=== PATIENT | female | born 1990 | race African-American/Black ===

== ENCOUNTER 2016-12-06 10:47 | Outpatient (CLI) | payer BC, MEDICAID ==
[2016-12-06 11:34] LABS: APPEARANCE,URINE CLEAR; BILIRUBIN,URINE NEGATIVE (NEGATIVE); GLUCOSE, URINE >=500 mg/dL (NEGATIVE); KETONES,URINE 80 mg/dL (NEGATIVE); LEUKOCYTE ESTERASE,URINE NEGATIVE (NEGATIVE); NITRITE,URINE NEGATIVE (NEGATIVE); PROTEIN,URINE 30 mg/dL (NEGATIVE); URINE SPECIFIC GRAVITY 1.026; UROBILINOGEN,URINE NEGATIVE mg/dL (<2.0)
[2016-12-06 12:04] LABS: URINE BARBITURATES SCREEN NEGATIVE; URINE METHADONE SCREEN NEGATIVE; URINE OPIATES LOW NEGATIVE; URINE PHENCYCLIDINE SCREEN NEGATIVE
[2016-12-06] MEDS ORDERED: FLUCONAZOLE 100 MG TABLET ONE (12:15)
[2016-12-06] MEDS ORDERED: FLUCONAZOLE 100 MG TABLET PO ONE (12:15)
[2016-12-06 12:57] LABS: ALANINE AMINOTRANSFERASE 34 U/L (9-52); ALBUMIN 3.3 g/dL (3.5-5.0); ALKALINE PHOSPHATASE 86 U/L (38-126); ANION GAP 15 (5-19); ASPARTATE AMINO TRANSFERASE 36 U/L (14-36); BILIRUBIN,DIRECT 0.4 mg/dL (0.0-0.4); BILIRUBIN,TOTAL 0.9 mg/dL (0.2-1.3); BLOOD UREA NITROGEN 5 mg/dL (7-20); CALCIUM 8.6 mg/dL (8.4-10.2); CARBON DIOXIDE 17 mmol/L (22-30); CHLORIDE 106 mmol/L (98-107); CREATININE RESULT 0.53 mg/dL (0.52-1.25); GLUCOSE 225 mg/dL (75-110); POTASSIUM 4.2 mmol/L (3.6-5.0); SODIUM 138.1 mmol/L (137-145); TOTAL PROTEIN 6.4 g/dL (6.3-8.2)
[2016-12-06 13:20] LABS: ABSOLUTE LYMPHOCYTES (AUTO) 0.7 10^3/uL (0.5-4.7); ABSOLUTE MONOCYTES (AUTO) 0.7 10^3/uL (0.1-1.4); ABSOLUTE NEUT (AUTO) 5.4 10^3/uL (1.7-8.2); BASOPHILS % (AUTO) 0.4 % (0-2); EOSINOPHILS % (AUTO) 0.7 % (0-6); HEMATOCRIT 37.3 % (36.0-47.0); HGB HCT DIFFERENCE -1.3; LYMPHOCYTES % (AUTO) 10.5 % (13-45); MEAN CORPUSCULAR HEMOGLOBIN 27.4 pg (27.0-33.4); MEAN CORPUSCULAR HGB CONC 32.1 g/dL (32.0-36.0); MEAN CORPUSCULAR VOLUME 86 fl (80-97); MONOCYTES % (AUTO) 10.5 % (3-13); RED BLOOD COUNT 4.36 10^6/uL (3.72-5.28); RED CELL DISTRIBUTION WIDTH 14.3 % (11.5-14.0); SEGMENTED NEUTROPHILS % (AUTO) 77.9 % (42-78); WHITE BLOOD COUNT 6.9 10^3/uL (4.0-10.5)
[2016-12-06] MEDS ORDERED: INSULIN LISPRO 100 UNIT/ML 3 ML VIAL SUBCUT ONE (15:07)
[2016-12-06] MEDS ORDERED: INSULIN LISPRO 100 UNIT/ML 3 ML VIAL ONE (15:12)
[2016-12-06 15:13] LABS: CHLAM PCR NOT DETECTED (NOT DETECT)
--- NOTE | 2016-12-06 19:14 | L&D Discharge Summary ---
OB Discharge Summary Datetime Report Generated by CPN: 12/06/2016 19:14 DISCHARGE DIAGNOSIS Diagnoses/Symptoms Other: Dehydration, not in labor Gestation: 30.2 Number of Babies in Womb: 1 Parity: 2 DIET/ACTIVITY/RESTRICTIONS Diet: Regular Activity: Normal Activity TEACHING/INSTRUCTIONS/REFERRALS Instructions Given To: Patient Instructions Understood: Patient Verbalized Understanding Referrals: None Educational Materials- Other: Dehydration, kick counts DISCHARGE INFORMATION Discharged AMA: No Discharge Date/Time: 12/06/2016 16:00 Discharged To: Home Discharge Provider Name: Dr Portiaen Accompanied By: self Discharge Method: Ambulatory Condition: Stable FOLLOW UP INFORMATION Follow Up With: [facility] Follow Up On: As Scheduled
--- NOTE | 2016-12-06 19:15 | L&D Discharge Summary ---
OB Discharge Summary Datetime Report Generated by CPN: 12/06/2016 19:15 DISCHARGE DIAGNOSIS Diagnoses/Symptoms Other: Dehydration, not in labor Gestation: 30.2 Number of Babies in Womb: 1 Parity: 2 DIET/ACTIVITY/RESTRICTIONS Diet: Regular Activity: Normal Activity TEACHING/INSTRUCTIONS/REFERRALS Instructions Given To: Patient Instructions Understood: Patient Verbalized Understanding Referrals: None Educational Materials- Other: Dehydration, kick counts DISCHARGE INFORMATION Discharged AMA: No Discharge Date/Time: 12/06/2016 16:00 Discharged To: Home Discharge Provider Name: Dr Portiaen Accompanied By: self Discharge Method: Ambulatory Condition: Stable FOLLOW UP INFORMATION Follow Up With: [facility] Follow Up On: As Scheduled
--- NOTE | 2016-12-07 22:46 | Antepartum Discharge Summary ---
Antepartum DC Datetime Report Generated by CPN: 12/07/2016 22:45 DIET/ACTIVITY/RESTRICTIONS Diet: Regular (12/06/2016 16:10:Noemi Odom RN) Activity: Normal Activity (12/06/2016 16:10:Noemi Odom RN) TEACHING/INSTRUCTIONS/REFERRALS Instructions Given To: Patient (12/06/2016 16:10:Noemi Odom RN) Instructions Understood: Patient Verbalized Understanding (12/06/2016 16:10:Noemi Odom, RN) Referrals: None (12/06/2016 16:10:Noemi Odom RN) Educational Materials- Other: Dehydration, kick counts (12/06/2016 16:10:Noemi Odom RN) DISCHARGE INFORMATION Discharged AMA: No (12/06/2016 16:10:Noemi Odom RN) Discharge Date/Time: 12/06/2016 16:00 (12/06/2016 16:10:Noemi Odom RN) Discharged To: Home (12/06/2016 16:10:Noemi Odom RN) Discharge Provider Name: Dr Bennett (12/06/2016 16:10:Noemi Odom RN) Accompanied By: self (12/06/2016 16:10:Noemi Odom RN) Discharge Method: Ambulatory (12/06/2016 16:10:Noemi Odom RN) Condition: Stable (12/06/2016 16:10:Noemi Odom RN) FOLLOW UP INFORMATION Follow Up With: [facility] (12/06/2016 16:10:Noemi Odom RN) Follow Up On: As Scheduled (12/06/2016 16:10:Noemi Odom RN)
--- NOTE | 2016-12-07 22:47 | L&D Discharge Summary ---
OB Discharge Summary Datetime Report Generated by CPN: 12/07/2016 22:45 DISCHARGE DIAGNOSIS Diagnoses/Symptoms Other: Dehydration, not in labor Gestation: 30.3 Number of Babies in Womb: 1 Parity: 2 DIET/ACTIVITY/RESTRICTIONS Diet: Regular Activity: Normal Activity TEACHING/INSTRUCTIONS/REFERRALS Instructions Given To: Patient Instructions Understood: Patient Verbalized Understanding Referrals: None Educational Materials- Other: Dehydration, kick counts DISCHARGE INFORMATION Discharged AMA: No Discharge Date/Time: 12/06/2016 16:00 Discharged To: Home Discharge Provider Name: Dr Portiaen Accompanied By: self Discharge Method: Ambulatory Condition: Stable FOLLOW UP INFORMATION Follow Up With: [facility] Follow Up On: As Scheduled
--- NOTE | 2016-12-07 22:47 | L&D Current Admission ---
Current Admit Datetime Report Generated by CPN: 12/07/2016 22:45 ADMISSION INFORMATION Chief Complaint: Contractions (12/06/2016 11:27:Noemi Odom RN) Chief Complaint: Dizziness x2 days; states blood glucose has been elevated and pt was seen Lizandro in [place] and they reccommended her be admitted to the hospital for blood glucose regulation and she denied admission. (11/04/2016 12:45:Carrington Ochoa RN)
--- NOTE | 2016-12-07 22:47 | L&D General Admission ---
General Admit Datetime Report Generated by CPN: 12/07/2016 22:45 INFORMATION Patient Age: 25 (09/28/2015 16:41:QS system process) EDC: 02/11/2017 00:00 (11/04/2016 12:44:Carrington Ochoa RN) : 3 (11/04/2016 12:44:Noemi Odom RN) Para: 2 (11/04/2016 12:44:Noemi Odom RN) Term: 1 (11/04/2016 12:44:Noemi Odom RN) : 1 (11/04/2016 12:44:Noemi Odom RN) Spontaneous Abortions: 0 (11/04/2016 12:44:Noemi Odom RN) Induced Abortions: 0 (11/04/2016 12:44:Noemi Odom RN) Livin (11/04/2016 12:44:Noemi Odom RN) Cesareans: 2 (11/04/2016 12:44:Noemi Odom RN) VBACs: 0 (11/04/2016 12:44:Noemi Odom RN) Ectopic: 0 (11/04/2016 12:44:Noemi Odom RN) Multiple Births: 0 (11/04/2016 12:44:Noemi Odom RN) Baby, Number in Womb: 1 (11/04/2016 12:44:Noemi Odom RN) CARE Primary Quality Controller: [facility] (11/04/2016 12:44:Noemi Odom RN) Month of 1st Visit: June (11/04/2016 12:44:Noemi Odom RN) Prepregnancy Weight (lb): 143 (11/04/2016 12:44:Noemi Odom RN) Prepregnancy Weight (kg): 65.0 (11/04/2016 12:44:QS system process) Height (in): 66 (12/06/2016 11:16:QS system process) Height (in): 67 (11/04/2016 16:29:QS system process) Height (in): 67 (11/04/2016 14:17:QS system process) Height (in): 67 (11/04/2016 13:56:QS system process) Height (in): 67 (11/04/2016 12:44:QS system process) Height (in): 66 (08/03/2016 13:57:QS system process) Height (in): 66 (07/26/2016 12:10:QS system process) Height (in): 66 (09/29/2015 08:36:QS system process) Height (in): 66 (09/28/2015 18:48:QS system process) Height (in): 66 (09/28/2015 16:44:QS system process) Height (in): 66 (09/28/2015 16:41:QS system process) ALLERGIES Medication Allergy: No (11/04/2016 12:44:Noemi Odom RN) Medication Allergies: No Known Allergies (12/06/2016) (12/06/2016 11:07:QS system process) Medication Allergies: No Known Allergies (11/04/2016) (11/04/2016 12:42:QS system process) Medication Allergies: No Known Allergies (07/26/2016) (07/26/2016 12:10:QS system process) Medication Allergies: No Known Allergies (09/28/2015) (09/28/2015 16:41:QS system process) Latex Allergy: No Latex Allergies (11/04/2016 12:44:Noemi Odom RN) COMMUNICATION Primary Language: Greenlandic (11/04/2016 12:44:Noemi Odom RN) Medical Tx Preferred Language: Greenlandic (11/04/2016 12:44:Noemi Odom RN) DEMOGRAPHICS Address: [address] [place] [id number] (09/28/2015 18:48:QS system process) Address: [address] [place] [id number] (09/28/2015 16:41:QS system process) Zipcode: [phone] (09/28/2015 16:41:QS system process) Home (09/28/2015 16:41:QS system process) Work (09/28/2015 16:41:QS system process) SSN: [id number] (09/28/2015 16:41:QS system process) Next of Kin Name: DREA MARTIN (07/26/2016 12:10:QS system process) Next of Kin Name: MADELINE MARTIN (09/28/2015 16:41:QS system process) Next of Kin (09/28/2015 16:41:QS system process) Next of Kin Relationship: MO (09/28/2015 16:41:QS system process) Date of : 1990 (09/28/2015 16:41:QS system process) Marital Status: Single (09/28/2015 16:41:QS system process) Sex: Female (09/28/2015 16:41:QS system process) Race: (09/28/2015 16:41:QS system process) Ethnicity: Non- or (09/28/2015 16:41:QS system process) Samaritan: None (09/28/2015 16:41:QS system process) DRUG AND ALCOHOL USE Alcohol: No (11/04/2016 12:44:Noemi Odom RN) Cigarettes: Never Smoker. [id number] (11/04/2016 12:44:Noemi Odom RN) Marijuana: No (11/04/2016 12:44:Noemi Odom RN) Cocaine: No (11/04/2016 12:44:Noemi Odom RN) Other Illicit Drugs: No (11/04/2016 12:44:Noemi Odom RN) VACCINE HISTORY Influenza Vaccine: Yes (11/04/2016 12:44:Noemi Odom RN) Pneumococcal Vaccine: No (11/04/2016 12:44:Noemi Odom RN) Tetanus Vaccine: No (11/04/2016 12:44:Noemi Odom RN) Tdap Vaccine: No (11/04/2016 12:44:Noemi Odom RN) Hepatitis B Vaccine: No (11/04/2016 12:44:Noemi Odom RN) Benefit of Breast Feed Discussed: Yes (11/04/2016 12:44:Noemi Odom RN) Circumcision: Yes (11/04/2016 12:44:Noemi Odom RN) Classes Attended: No (11/04/2016 12:44:Noemi Oodm RN) Tubal Ligation: Yes (11/04/2016 12:44:Noemi Odom RN) Tubal Authorization Signed: Yes (11/04/2016 12:44:Noemi Odom RN) Consent: N/A (11/04/2016 12:44:Noemi Odom RN) Consent Signed: No (11/04/2016 12:44:Noemi Odom RN) Pain Management Plans: Spinal (11/04/2016 12:44:Noemi Odmo RN) Support Person: Drea (11/04/2016 12:44:Noemi Odom RN) Support Person Relationship: Mother (11/04/2016 12:44:Noemi Odom RN) Cultural/Spritual Practice: No (11/04/2016 12:44:Noemi Odom RN) Spir/Cult Dietary Needs: No (11/04/2016 12:44:Noemi Odom RN) LIVING SITUATION/DISCHARGE PLAN Living Arrangements: Apartment (11/04/2016 12:44:Noemi Odom RN) Adequate Access to:: Electric; Heat; Refrigeration; Plumbing/Running water; Phone; Transportation (11/04/2016 12:44:Noemi Odom RN) WIC Program: Yes (11/04/2016 12:44:Noemi Odom RN) Discharge Tentering Machine Off Bearer Person: family (11/04/2016 12:44:Noemi Odom RN) Person to Help after Discharge: family (11/04/2016 12:44:Noemi Odom RN) Currently Using Commun Resources: No (11/04/2016 12:44:Noemi Odom RN) Outside Agency/Way Inspector: No (11/04/2016 12:44:Noemi Odom RN) Car Seat for Discharge: No (11/04/2016 12:44:Noemi Odom RN) Need Help to Obtain Car Seat: will get one soon (11/04/2016 12:44:Noemi Odom RN) Adoption Requested: No (11/04/2016 12:44:Noemi Odom RN) Pt Contact w/infant Post : N/A (11/04/2016 12:44:Noemi Odom RN) LABS Blood Type: O Positive (11/04/2016 12:44:Noemi Odom RN) Antibody Screen: postitive (11/04/2016 12:44:Noemi Odom RN) Hemoglobin: 12.0 (12/06/2016 12:52:QS system process) Hemoglobin: 10.4 L (09/29/2015 21:58:QS system process) Hemoglobin: 10.7 L (09/29/2015 19:10:QS system process) Hemoglobin: 10.9 L (09/29/2015 14:03:QS system process) Hemoglobin: 12.1 (09/29/2015 10:19:QS system process) Hemoglobin: 10.9 L (09/29/2015 06:27:QS system process) Hemoglobin: 11.7 L (09/29/2015 02:25:QS system process) Hematocrit: 37.3 (12/06/2016 12:52:QS system process) Hematocrit: 32.9 L (09/29/2015 21:58:QS system process) Hematocrit: 34.3 L (09/29/2015 19:10:QS system process) Hematocrit: 35.0 L (09/29/2015 14:03:QS system process) Hematocrit: 39.1 (09/29/2015 10:19:QS system process) Hematocrit: 34.0 L (09/29/2015 06:27:QS system process) Hematocrit: 37.6 (09/29/2015 02:25:QS system process) MCV: 86 (12/06/2016 12:52:QS system process) MCV: 87 (09/29/2015 21:58:QS system process) MCV: 87 (09/29/2015 19:10:QS system process) MCV: 88 (09/29/2015 14:03:QS system process) MCV: 89 (09/29/2015 10:19:QS system process) MCV: 87 (09/29/2015 06:27:QS system process) MCV: 88 (09/29/2015 02:25:QS system process) RPR/VDRL: Nonreactive (11/04/2016 12:44:Noemi Odom RN) HIV Exposure Test: Negative (11/04/2016 12:44:Noemi Odom RN) Hepatitis B: Negative (11/04/2016 12:44:Noemi Odom RN) OB/PREVIOUS HISTORY Previous Procedures: Ultrasound; NST (11/04/2016 12:44:Noemi Odom RN) Current Procedures: Ultrasound (11/04/2016 12:44:Noemi Odom RN) History of Previous : Yes (11/04/2016 12:44:Noemi Odom RN) History of Gestational Diabetes: No (11/04/2016 12:44:Noemi Odom RN) History of PIH: No (11/04/2016 12:44:Noemi Odom RN) History of Incompetent Cervix: No (11/04/2016 12:44:Noemi Odom RN) History of Placenta Previa/Abrup: No (11/04/2016 12:44:Noemi Odom RN) History of Macrosomia: No (11/04/2016 12:44:Noemi Odom RN) History of IUGR: No (11/04/2016 12:44:Noemi Odom RN) History of Hemorrhage: No (11/04/2016 12:44:Noemi Odom RN) History of Loss/Stillborn: No (11/04/2016 12:44:Noemi Odom RN) History of : No (11/04/2016 12:44:Noemi Odom RN) History of D (Rh) Sensitization: No (11/04/2016 12:44:Noemi Odom RN) History Recurrent Loss/Stillborn: No (11/04/2016 12:44:Noemi Odom RN) History Depression/PP Depression: No (11/04/2016 12:44:Noemi Odom RN) History of Uterine Anomaly/ROGELIO: No (11/04/2016 12:44:Noemi Odom RN) History of Infertility: No (11/04/2016 12:44:Noemi Odom RN) History of ART Treatment: No (11/04/2016 12:44:Noemi Odom RN) History of ROGELIO: No (11/04/2016 12:44:Noemi Odom RN) Comments Obstetrical History: G1: primary 2010, 34 weeks G2: repeat c/s 2012 G3: current (11/04/2016 12:44:Noemi Odom RN) MEDICAL HISTORY Med Hx Diabetes: Yes (11/04/2016 12:44:Noemi Odom RN) Diabetes Type: Type I - IDDM (11/04/2016 12:44:Noemi Odom RN) Med Hx Hypertension: No (11/04/2016 12:44:Noemi Odom RN) Med Hx Heart Disease: No (11/04/2016 12:44:Noemi Odom RN) Med Hx Autoimmune Disorder: No (11/04/2016 12:44:Noemi Odom RN) Med Hx Kidney Disease/UTI: No (11/04/2016 12:44:Noemi Odom RN) Med Hx Neurologic/Epilepsy: No (11/04/2016 12:44:Noemi Odom RN) Med Hx Psychiatric Disorders: No (11/04/2016 12:44:Noemi Odom RN) Med Hx Hepatitis/Liver Disease: No (11/04/2016 12:44:Noemi Odom RN) Med Hx Varicosities/Phlebitis: No (11/04/2016 12:44:Noemi Odom RN) Med Hx Thyroid Dysfunction: No (11/04/2016 12:44:Noemi Odom RN) Med Hx Trauma/Violence: No (11/04/2016 12:44:Noemi Odom RN) Med Hx Blood Transfusion: No (11/04/2016 12:44:Noemi Odom RN) Med Hx Pulmonary (Asthma,TB): No (11/04/2016 12:44:Noemi Odom RN) Med Hx Breast: No (11/04/2016 12:44:Noemi Odom RN) Med Hx H[employer]ACHINE [employer] Surgery: No (11/04/2016 12:44:Noemi Odom RN) Med Hx Hospitalization/Surgery: Yes (11/04/2016 12:44:Noemi Odom RN) Med Hx Anesthetic Complications: No (11/04/2016 12:44:Noemi Odom RN) Med Hx Abnormal Pap Smear: No (11/04/2016 12:44:Noemi Odom RN) Other Medical Diseases: No (11/04/2016 12:44:Noemi Odom RN) Med Hx Significant Family Hx: No (11/04/2016 12:44:Noemi Odom RN) Details of Med/Surg Hx: Type 1 Diabetes diagnosed age 1, tonsillectomy, previous c/s, anti E antibody, requesting BTL (11/04/2016 12:44:Noemi Odom RN) INFECTIOUS HISTORY Inf Hx Gonorrhea: No (11/04/2016 12:44:Noemi Odom RN) Inf Hx Chlamydia: No (11/04/2016 12:44:Noemi Odom RN) Inf Hx Syphilis: No (11/04/2016 12:44:Noemi Odom RN) Inf Hx HIV/AIDS: No (11/04/2016 12:44:Noemi Odom RN) Inf Hx Human Papilloma Virus: No (11/04/2016 12:44:Noemi Odom RN) Inf Hx Pt/Partner Genital Herpes: Yes (11/04/2016 12:44:Noemi Odom RN) Inf Hx Tuberculosis/Exposure: No (11/04/2016 12:44:Noemi Odom RN) Inf Hx Hepatitis B,C: No (11/04/2016 12:44:Noemi Odom RN) Inf Hx Rash or Viral Illness: No (11/04/2016 12:44:Noemi Odom RN) Details of Infectious Hx: Taking Acyclovir currently (11/04/2016 12:44:Noemi Odom RN) GENETIC HISTORY Gen Hx Age >=35 at RIN: No (11/04/2016 12:44:Noemi Odom RN) Gen Hx Thalassemia: No (11/04/2016 12:44:Noemi Odom RN) Gen Hx Congenital Heart Defect: No (11/04/2016 12:44:Noemi Odom RN) Gen Hx Neural Tube Defect: No (11/04/2016 12:44:Noemi Odom RN) Gen Hx Down's Syndrome: No (11/04/2016 12:44:Noemi Odom RN) Gen Hx Ryne-Sachs: No (11/04/2016 12:44:Noemi Odom RN) Gen Hx Dana: No (11/04/2016 12:44:Noemi Odom RN) Gen Hx Familial Dysautonomia: No (11/04/2016 12:44:Noemi Odom RN) Gen Hx Sickle Cell Disease/Trait: No (11/04/2016 12:44:Noemi Odom RN) Gen Hx Hemophilia/Blood Disorder: No (11/04/2016 12:44:Noemi Odom RN) Gen Hx Muscular Dystrophy: No (11/04/2016 12:44:Noemi Odom RN) Gen Hx Cystic Fibrosis: No (11/04/2016 12:44:Noemi Odom RN) Gen Hx Huntingtons Chorea: No (11/04/2016 12:44:Noemi Odom RN) Gen Hx Mental Retardation/Autism: No (11/04/2016 12:44:Noemi Odom RN) Gen Hx Tested for Fragile X: No (11/04/2016 12:44:Noemi Odom RN) Gen Hx Other Inher/Chromosomal: No (11/04/2016 12:44:Noemi Odom RN) Gen Hx Maternal Metabolic DO: No (11/04/2016 12:44:Noemi Odom RN) Gen Hx Pt Father or FOB Defect: No (11/04/2016 12:44:Noemi Odom RN) Gen Hx Other Genetic History: No (11/04/2016 12:44:Noemi Odom RN) Gen Hx Drugs/Meds since LMP: Yes (11/04/2016 12:44:Noemi Odom RN) Gen Hx Medications: PNV, Insulin, Acyclovir (11/04/2016 12:44:Noemi Odom RN)
--- NOTE | 2016-12-08 04:46 | L&D Discharge Summary ---
OB Discharge Summary Datetime Report Generated by CPN: 12/08/2016 04:45 DISCHARGE DIAGNOSIS Diagnoses/Symptoms Other: Dehydration, not in labor Gestation: 30.3 Number of Babies in Womb: 1 Parity: 2 DIET/ACTIVITY/RESTRICTIONS Diet: Regular Activity: Normal Activity TEACHING/INSTRUCTIONS/REFERRALS Instructions Given To: Patient Instructions Understood: Patient Verbalized Understanding Referrals: None Educational Materials- Other: Dehydration, kick counts DISCHARGE INFORMATION Discharged AMA: No Discharge Date/Time: 12/06/2016 16:00 Discharged To: Home Discharge Provider Name: Dr Portiaen Accompanied By: self Discharge Method: Ambulatory Condition: Stable FOLLOW UP INFORMATION Follow Up With: [facility] Follow Up On: As Scheduled
--- NOTE | 2016-12-08 04:46 | Antepartum Discharge Summary ---
Antepartum DC Datetime Report Generated by CPN: 12/08/2016 04:45 DIET/ACTIVITY/RESTRICTIONS Diet: Regular (12/06/2016 16:10:Noemi Odom RN) Activity: Normal Activity (12/06/2016 16:10:Noemi Odom RN) TEACHING/INSTRUCTIONS/REFERRALS Instructions Given To: Patient (12/06/2016 16:10:Noemi Odom RN) Instructions Understood: Patient Verbalized Understanding (12/06/2016 16:10:Noemi Odom, RN) Referrals: None (12/06/2016 16:10:Noemi Odom RN) Educational Materials- Other: Dehydration, kick counts (12/06/2016 16:10:Noemi Odom RN) DISCHARGE INFORMATION Discharged AMA: No (12/06/2016 16:10:Noemi Odom RN) Discharge Date/Time: 12/06/2016 16:00 (12/06/2016 16:10:Noemi Odom RN) Discharged To: Home (12/06/2016 16:10:Noemi Odom RN) Discharge Provider Name: Dr Bennett (12/06/2016 16:10:Noemi Odom RN) Accompanied By: self (12/06/2016 16:10:Noemi Odom RN) Discharge Method: Ambulatory (12/06/2016 16:10:Noemi Odom RN) Condition: Stable (12/06/2016 16:10:Noemi Odom RN) FOLLOW UP INFORMATION Follow Up With: [facility] (12/06/2016 16:10:Noemi Odom RN) Follow Up On: As Scheduled (12/06/2016 16:10:Noemi Odom RN)
--- NOTE | 2016-12-08 04:46 | L&D Current Admission ---
Current Admit Datetime Report Generated by CPN: 12/08/2016 04:45 ADMISSION INFORMATION Chief Complaint: Contractions (12/06/2016 11:27:Noemi Odom RN) Chief Complaint: Dizziness x2 days; states blood glucose has been elevated and pt was seen Lizandro in [place] and they reccommended her be admitted to the hospital for blood glucose regulation and she denied admission. (11/04/2016 12:45:Carrington Ochoa RN)
--- NOTE | 2016-12-08 04:46 | L&D Admission Assessment ---
LD ADM ASMT Datetime Report Generated by CPN: 12/08/2016 04:45 PATIENT ASSESSMENT Assessment Type: Triage (12/06/2016 11:27:Noemi Odom RN) WEIGHT Weight (lb): 156 (12/06/2016 11:16:QS system process) Weight (kg): 70.9 (12/06/2016 11:16:QS system process) Total Wt Gain (lb): 13 (12/06/2016 11:16:QS system process) Wt Gain (kg): 6.0 (12/06/2016 11:16:QS system process) BMI: 24.4 (12/06/2016 11:16:QS system process) PAIN Pain Scale: 2 (12/06/2016 15:47:Noemi Odom RN) Pain Scale: 4 (12/06/2016 11:27:Noemi Odom RN) Pain Presence: Intermittent (12/06/2016 15:47:Noemi Odom RN) Pain Presence: Constant (12/06/2016 11:27:Noemi Odom RN) Pain Type: Contraction (12/06/2016 15:47:Noemi Odom RN) Pain Type: Sharp; Contraction; Stabbing (12/06/2016 11:27:Noemi Odom RN) Pain Location: Abdomen (12/06/2016 15:47:Noemi Odom RN) Pain Location: Abdomen (12/06/2016 11:27:Noemi Odom RN) Pain Comments: Pt feeling much better than before. (12/06/2016 15:47:Noemi Odom RN) CONTRACTIONS Frequency (min): irreg (12/06/2016 15:50:Noemi Odom RN) Frequency (min): 5-8 (12/06/2016 15:15:Noemi Odom RN) Frequency (min): 2-8 (12/06/2016 14:45:Noemi Odom RN) Frequency (min): 3-8 (12/06/2016 14:15:Noemi Odom RN) Frequency (min): x2 (12/06/2016 13:45:Noemi Odom RN) Frequency (min): 3-6 (12/06/2016 13:15:Noemi Odom RN) Frequency (min): 2-5 (12/06/2016 12:45:Noemi Odom RN) Frequency (min): 2-5 (12/06/2016 12:15:Noemi Odom RN) Frequency (min): 3-5 (12/06/2016 11:45:Noemi Odom RN) Frequency (min): pt states she has been coughing since Monday and has constant sharp lower abdominal pain (12/06/2016 11:27:Noemi Odom RN) Duration (sec): 40-70 (12/06/2016 15:50:Noemi Odom RN) Duration (sec): 50-90 (12/06/2016 15:15:Noemi Odom RN) Duration (sec): 40-80 (12/06/2016 14:45:Noemi Odom RN) Duration (sec): 30-90 (12/06/2016 14:15:Noemi Odom RN) Duration (sec): 50-70 (12/06/2016 13:45:Noemi Odom RN) Duration (sec): 40-80 (12/06/2016 13:15:Noemi Odom RN) Duration (sec): 40-80 (12/06/2016 12:45:Noemi Odom RN) Duration (sec): 40-80 (12/06/2016 12:15:Noemi Odom RN) Duration (sec): 50-80 (12/06/2016 11:45:Noemi Odom RN) Quality: Mild (12/06/2016 15:50:Noemi Odom RN) Quality: Mild (12/06/2016 15:15:Noemi Odom RN) Quality: Mild (12/06/2016 14:45:Noemi Odom RN) Quality: Mild/Moderate (12/06/2016 14:15:Noemi Odom RN) Quality: Mild/Moderate (12/06/2016 13:45:Noemi Odom RN) Quality: Mild/Moderate (12/06/2016 13:15:Noemi Odom RN) Quality: Mild/Moderate (12/06/2016 12:45:Noemi Odom RN) Quality: Mild/Moderate (12/06/2016 12:15:Noemi Odom RN) Quality: Mild/Moderate (12/06/2016 11:45:Noemi Odom RN) Pattern: Normal: <= 5 Contractions in 10 Minutes (12/06/2016 12:15:Noemi Odom RN) Resting Tone [place]: Relaxed (12/06/2016 15:50:Noemi Odom RN) Resting Tone [place]: Relaxed (12/06/2016 15:15:Noemi Odom RN) Resting Tone [place]: Relaxed (12/06/2016 14:45:Noemi Odom RN) Resting Tone [place]: Relaxed (12/06/2016 14:15:Noemi Odom RN) Resting Tone [place]: Relaxed (12/06/2016 13:45:Noemi Odom RN) Resting Tone [place]: Relaxed (12/06/2016 13:15:Noemi Odom RN) Resting Tone [place]: Relaxed (12/06/2016 12:45:Noemi Odom RN) Resting Tone [place]: Relaxed (12/06/2016 12:15:Noemi Odom RN) Resting Tone [place]: Relaxed (12/06/2016 11:45:Noemi Odom RN) NEURO Level of Consciousness: Fully Conscious (12/06/2016 11:27:Noemi Odom RN) DTR's/Clonus: DTRs 2+; No Clonus (12/06/2016 11:27:Noemi Odom RN) Headache: Generalized (12/06/2016 11:27:Noemi Odom RN) Dizziness: No (12/06/2016 11:27:Noemi Odom RN) Blurred Vision: No (12/06/2016 11:27:Noemi Odom RN) Extremity Numbness/Tingling : None (12/06/2016 11:27:Noemi Odom RN) Extremity Movement: Full Range of Motion (12/06/2016 11::Noemi Odom RN) CARDIOVASCULAR Heart Rhythm: Regular (12/06/2016 11:27:Noemi Odom RN) Nailbeds: [place] (12/06/2016 11:27:Noemi Odom RN) Capillary Refill: Less than 3 Seconds (12/06/2016 11:27:Noemi Odom RN) Facial Edema: None (12/06/2016 11:27:Noemi Odom RN) RESPIRATORY Respiratory Effort: Unlabored; Regular Rhythm; Equal Expansion (12/06/2016 11:27:Noemi Odom RN) Breath Sounds, Left: Clear and Equal (12/06/2016 11:27:Noemi Odom RN) Breath Sounds, Right: Clear and Equal (12/06/2016 11:27:Noemi Odom RN) Cough Productivity: None (12/06/2016 11:27:Noemi Odom RN) GASTROINTESTINAL Nausea/Vomiting: Denies (12/06/2016 11:27:Noemi Odom RN) Bowel Sounds: Normoactive; All Quadrants (12/06/2016 11:27:Noemi Odom RN) RUQ Epigastric Pain: Denies (12/06/2016 11:27:Noemi Odom RN) GENITOURINARY Bladder: Nondistended (12/06/2016 11:27:Noemi Odom RN) Frequency of Urination: No (12/06/2016 11:27:Noemi Odom RN) Urination Burning: No (12/06/2016 11:27:Noemi Odom RN) CVA Tenderness: No (12/06/2016 11:27:Noemi Odom RN) Vaginal Bleeding: None (12/06/2016 11::Noemi Odom RN) Vaginal Discharge Color: N/A (12/06/2016 11::Noemi Odom RN) INTEGUMENTARY Skin Color: Normal for Race (12/06/2016 11:27:Noemi Odom RN) Skin Temperature: Warm (12/06/2016 11::Noemi Odom RN) Skin Moisture: Dry (12/06/2016 11::Noemi Odom RN) CHRISTOPHER SKIN ASSESSMENT Christopher Scale Sensory Perception: No Impairment- Responds to verbal commands. Has no sensory deficit which would limit ability to feel or voice pain or discomfort (12/06/2016 11:27:Noemi Odom RN) Christopher Scale Moisture: Rarely Moist- Skin is usually dry. Linen only requires changing at routine intervals (12/06/2016 11::Noemi Odom RN) Christopher Scale Activity: Walks Frequently- Walks outside the room at least twice a day and inside room at least every 2 hours during the day. (12/06/2016 11:27:Noemi Odom RN) Christopher Scale Mobility: No Limitations- Makes major and frequent changes in position without assistance (12/06/2016 11:27:Noemi Odom RN) Christopher Scale Nutrition: Excellent- Eats most of every meal. Never refuses a meal. Usually eats a total of 4 or more servings of meat and dairy products. Occasionally eats between meals. Does not require supplementation (12/06/2016 11:27:Noemi Odom RN) Christopher Scale Friction and Shear: No Apparent Problem- Moves in bed and in chair independently and has sufficient muscle strength to lift up completely during move. Maintains good position in bed or chair at all times (12/06/2016 11:27:Noemi Odom RN) Christopher Scale Total: 23 (12/06/2016 11::QS system process) Christopher Scale Risk: No Risk of Pressure Ulcer Noted at this Time (12/06/2016 11:27:QS system process) SUPPORT Emotional State: Calm/Relaxed (12/06/2016 11:27:Noemi Odom RN) SAFETY Call Al Within Reach: Yes (12/06/2016 11:27:Noemi Odom RN) Side Rails Up: Yes (12/06/2016 11:27:Noemi Odom RN) Bed Wheels Locked: Yes (12/06/2016 11:27:Noemi Odom RN) Arm Bands Present: Yes (12/06/2016 11:27:Noemi Odom RN) FALL SCREEN Fall Risk History of Falling: (0) No (12/06/2016 11:27:Noemi Odom RN) Fall Risk Secondary Diagnosis: (0) No (12/06/2016 11:27:Noemi Odom RN) Fall Risk Ambulatory Aid: (0) None/Bedrest/Wheelchair/Nurse Assist (12/06/2016 11:27:Noemi Odom RN) Fall Risk IV Therapy: (0) No (12/06/2016 11:27:Noemi Odom RN) Fall Risk Gait: (0) Normal/Bedrest/Immobile (12/06/2016 11:27:Noemi Odom RN) Fall Risk Mental Status: (0) Oriented to Own Ability (12/06/2016 11:27:Noemi Odom RN) Fall Risk Score: 0 (12/06/2016 11:27:QS system process) Fall Risk Score Definition: No Risk: No action required (12/06/2016 11:27:QS system process) BABY A FHR Baseline Rate (bpm) Baby A: 145 (12/06/2016 15:50:Noemi Odom RN) FHR Baseline Rate (bpm) Baby A: 135 (12/06/2016 15:15:Noemi Odom RN) FHR Baseline Rate (bpm) Baby A: 145 (12/06/2016 14:45:Noemi Odom RN) FHR Baseline Rate (bpm) Baby A: 135 (12/06/2016 14:15:Noemi Odom RN) FHR Baseline Rate (bpm) Baby A: 135 (12/06/2016 13:45:Noemi Odom RN) FHR Baseline Rate (bpm) Baby A: 145 (12/06/2016 13:15:Noemi Odom RN) FHR Baseline Rate (bpm) Baby A: 140 (12/06/2016 12:45:Noemi Odom RN) FHR Baseline Rate (bpm) Baby A: 145 (12/06/2016 12:15:Noemi Odom RN) FHR Baseline Rate (bpm) Baby A: 145 (12/06/2016 11:45:Noemi Odom RN) Variability Baby A: Moderate 6-25 bpm (12/06/2016 15:50:Noemi Odom RN) Variability Baby A: Moderate 6-25 bpm (12/06/2016 15:15:Noemi Odom RN) Variability Baby A: Moderate 6-25 bpm (12/06/2016 14:45:Noemi Odom RN) Variability Baby A: Moderate 6-25 bpm (12/06/2016 14:15:Noemi Odom RN) Variability Baby A: Moderate 6-25 bpm (12/06/2016 13:45:Noemi Odom RN) Variability Baby A: Moderate 6-25 bpm (12/06/2016 13:15:Noemi Odom RN) Variability Baby A: Moderate 6-25 bpm (12/06/2016 12:45:Noemi Odom RN) Variability Baby A: Moderate 6-25 bpm (12/06/2016 12:15:Noemi Odom RN) Variability Baby A: Moderate 6-25 bpm (12/06/2016 11:45:Noemi Odom RN) Accelerations Baby A: 10X10 (12/06/2016 15:50:Noemi Odom RN) Accelerations Baby A: 10X10 (12/06/2016 15:15:Noemi Odom RN) Accelerations Baby A: 15X15 (12/06/2016 14:45:Noemi Odom RN) Accelerations Baby A: 15X15 (12/06/2016 14:15:Noemi Odom RN) Accelerations Baby A: 15X15 (12/06/2016 13:45:Noemi Odom RN) Accelerations Baby A: 15X15 (12/06/2016 13:15:Noemi Odom RN) Accelerations Baby A: 15X15 (12/06/2016 12:45:Noemi Odom RN) Accelerations Baby A: 15X15 (12/06/2016 12:15:Noemi Odom RN) Accelerations Baby A: None (12/06/2016 11:45:Noemi Odom RN) Decelerations Baby A: None (12/06/2016 15:50:Noemi Odom RN) Decelerations Baby A: Variable (12/06/2016 15:15:Noemi Odom RN) Decelerations Baby A: None (12/06/2016 14:45:Noemi Oodm RN) Decelerations Baby A: None (12/06/2016 14:15:Noemi Odom RN) Decelerations Baby A: None (12/06/2016 13:45:Noemi Odom RN) Decelerations Baby A: None (12/06/2016 13:15:Noemi Odom RN) Decelerations Baby A: None (12/06/2016 12:45:Noemi dOom RN) Decelerations Baby A: Late (12/06/2016 12:15:Noemi Odom RN) Decelerations Baby A: Late (12/06/2016 11:45:Noemi Odom RN)
--- NOTE | 2016-12-08 04:46 | L&D General Admission ---
General Admit Datetime Report Generated by CPN: 12/08/2016 04:45 INFORMATION Patient Age: 25 (09/28/2015 16:41:QS system process) EDC: 02/11/2017 00:00 (11/04/2016 12:44:Carrington Ochoa RN) : 3 (11/04/2016 12:44:Noemi Odom RN) Para: 2 (11/04/2016 12:44:Noemi Odom RN) Term: 1 (11/04/2016 12:44:Noemi Odom RN) : 1 (11/04/2016 12:44:Noemi Odom RN) Spontaneous Abortions: 0 (11/04/2016 12:44:Noemi Odom RN) Induced Abortions: 0 (11/04/2016 12:44:Noemi Odom RN) Livin (11/04/2016 12:44:Noemi Odom RN) Cesareans: 2 (11/04/2016 12:44:Noemi Odom RN) VBACs: 0 (11/04/2016 12:44:Noemi Odom RN) Ectopic: 0 (11/04/2016 12:44:Noemi Odom RN) Multiple Births: 0 (11/04/2016 12:44:Noemi Odom RN) Baby, Number in Womb: 1 (11/04/2016 12:44:Noemi Odom RN) CARE Primary Joiners Supervisor[facility] (11/04/2016 12:44:Noemi Odom RN) Month of 1st Visit: June (11/04/2016 12:44:Noemi Odom RN) Prepregnancy Weight (lb): 143 (11/04/2016 12:44:Noemi Odom RN) Prepregnancy Weight (kg): 65.0 (11/04/2016 12:44:QS system process) Height (in): 66 (12/06/2016 11:16:QS system process) Height (in): 67 (11/04/2016 16:29:QS system process) Height (in): 67 (11/04/2016 14:17:QS system process) Height (in): 67 (11/04/2016 13:56:QS system process) Height (in): 67 (11/04/2016 12:44:QS system process) Height (in): 66 (08/03/2016 13:57:QS system process) Height (in): 66 (07/26/2016 12:10:QS system process) Height (in): 66 (09/29/2015 08:36:QS system process) Height (in): 66 (09/28/2015 18:48:QS system process) Height (in): 66 (09/28/2015 16:44:QS system process) Height (in): 66 (09/28/2015 16:41:QS system process) ALLERGIES Medication Allergy: No (11/04/2016 12:44:Noemi Odom RN) Medication Allergies: No Known Allergies (12/06/2016) (12/06/2016 11:07:QS system process) Medication Allergies: No Known Allergies (11/04/2016) (11/04/2016 12:42:QS system process) Medication Allergies: No Known Allergies (07/26/2016) (07/26/2016 12:10:QS system process) Medication Allergies: No Known Allergies (09/28/2015) (09/28/2015 16:41:QS system process) Latex Allergy: No Latex Allergies (11/04/2016 12:44:Noemi Odom RN) COMMUNICATION Primary Language: Sinhala (11/04/2016 12:44:Noemi Odom RN) Medical Tx Preferred Language: Sinhala (11/04/2016 12:44:Noemi Odom RN) DEMOGRAPHICS Address: [address] [place] [phone] (09/28/2015 18:48:QS system process) Address: [address] [place] [phone] (09/28/2015 16:41:QS system process) Zipcode: [phone] (09/28/2015 16:41:QS system process) Home (09/28/2015 16:41:QS system process) Work (09/28/2015 16:41:QS system process) SSN: [id number] (09/28/2015 16:41:QS system process) Next of Kin Name: DREA MARTIN (07/26/2016 12:10:QS system process) Next of Kin Name: MADELINE MARTIN (09/28/2015 16:41:QS system process) Next of Kin (09/28/2015 16:41:QS system process) Next of Kin Relationship: MO (09/28/2015 16:41:QS system process) Date of : 1990 (09/28/2015 16:41:QS system process) Marital Status: Single (09/28/2015 16:41:QS system process) Sex: Female (09/28/2015 16:41:QS system process) Race: (09/28/2015 16:41:QS system process) Ethnicity: Non- or (09/28/2015 16:41:QS system process) Quaker: None (09/28/2015 16:41:QS system process) DRUG AND ALCOHOL USE Alcohol: No (11/04/2016 12:44:Noemi Odom RN) Cigarettes: Never Smoker. [id number] (11/04/2016 12:44:Noemi Odom RN) Marijuana: No (11/04/2016 12:44:Noemi Odom RN) Cocaine: No (11/04/2016 12:44:Noemi Odom RN) Other Illicit Drugs: No (11/04/2016 12:44:Noemi Odom RN) VACCINE HISTORY Influenza Vaccine: Yes (11/04/2016 12:44:Noemi Odom RN) Pneumococcal Vaccine: No (11/04/2016 12:44:Noemi Odom RN) Tetanus Vaccine: No (11/04/2016 12:44:Noemi Odom RN) Tdap Vaccine: No (11/04/2016 12:44:Noemi Odom RN) Hepatitis B Vaccine: No (11/04/2016 12:44:Noemi Odom RN) Benefit of Breast Feed Discussed: Yes (11/04/2016 12:44:Noemi Odom RN) Circumcision: Yes (11/04/2016 12:44:Noemi Odom RN) Classes Attended: No (11/04/2016 12:44:Noemi Odom RN) Tubal Ligation: Yes (11/04/2016 12:44:Noemi Odom RN) Tubal Authorization Signed: Yes (11/04/2016 12:44:Noemi Odom RN) Consent: N/A (11/04/2016 12:44:Noemi Odom RN) Consent Signed: No (11/04/2016 12:44:Noemi Odom RN) Pain Management Plans: Spinal (11/04/2016 12:44:Noemi Odom RN) Support Person: Drea (11/04/2016 12:44:Noemi Odom RN) Support Person Relationship: Mother (11/04/2016 12:44:Noemi Odom RN) Cultural/Spritual Practice: No (11/04/2016 12:44:Noemi Odom RN) Spir/Cult Dietary Needs: No (11/04/2016 12:44:Noemi Odom RN) LIVING SITUATION/DISCHARGE PLAN Living Arrangements: Apartment (11/04/2016 12:44:Noemi Odom RN) Adequate Access to:: Electric; Heat; Refrigeration; Plumbing/Running water; Phone; Transportation (11/04/2016 12:44:Noemi Odom RN) WIC Program: Yes (11/04/2016 12:44:Noemi Odom RN) Discharge Real Estate Appraiser Supervisor Person: family (11/04/2016 12:44:Noemi Odom RN) Person to Help after Discharge: family (11/04/2016 12:44:Noemi Odom RN) Currently Using Commun Resources: No (11/04/2016 12:44:Noemi Odom RN) Outside Agency/Debridging Machine Operator: No (11/04/2016 12:44:Noemi Odom RN) Car Seat for Discharge: No (11/04/2016 12:44:Noemi Odom RN) Need Help to Obtain Car Seat: will get one soon (11/04/2016 12:44:Noemi Odom RN) Adoption Requested: No (11/04/2016 12:44:Noemi Odom RN) Pt Contact w/infant Post : N/A (11/04/2016 12:44:Noemi Odom RN) LABS Blood Type: O Positive (11/04/2016 12:44:Noemi Odom RN) Antibody Screen: postitive (11/04/2016 12:44:Nomei Odom RN) Hemoglobin: 12.0 (12/06/2016 12:52:QS system process) Hemoglobin: 10.4 L (09/29/2015 21:58:QS system process) Hemoglobin: 10.7 L (09/29/2015 19:10:QS system process) Hemoglobin: 10.9 L (09/29/2015 14:03:QS system process) Hemoglobin: 12.1 (09/29/2015 10:19:QS system process) Hemoglobin: 10.9 L (09/29/2015 06:27:QS system process) Hemoglobin: 11.7 L (09/29/2015 02:25:QS system process) Hematocrit: 37.3 (12/06/2016 12:52:QS system process) Hematocrit: 32.9 L (09/29/2015 21:58:QS system process) Hematocrit: 34.3 L (09/29/2015 19:10:QS system process) Hematocrit: 35.0 L (09/29/2015 14:03:QS system process) Hematocrit: 39.1 (09/29/2015 10:19:QS system process) Hematocrit: 34.0 L (09/29/2015 06:27:QS system process) Hematocrit: 37.6 (09/29/2015 02:25:QS system process) MCV: 86 (12/06/2016 12:52:QS system process) MCV: 87 (09/29/2015 21:58:QS system process) MCV: 87 (09/29/2015 19:10:QS system process) MCV: 88 (09/29/2015 14:03:QS system process) MCV: 89 (09/29/2015 10:19:QS system process) MCV: 87 (09/29/2015 06:27:QS system process) MCV: 88 (09/29/2015 02:25:QS system process) RPR/VDRL: Nonreactive (11/04/2016 12:44:Noemi Odom RN) HIV Exposure Test: Negative (11/04/2016 12:44:Noemi Odom RN) Hepatitis B: Negative (11/04/2016 12:44:Noemi Odom RN) OB/PREVIOUS HISTORY Previous Procedures: Ultrasound; NST (11/04/2016 12:44:Noemi Odom RN) Current Procedures: Ultrasound (11/04/2016 12:44:Noemi Odom RN) History of Previous : Yes (11/04/2016 12:44:Noemi Odom RN) History of Gestational Diabetes: No (11/04/2016 12:44:Noemi Odom RN) History of PIH: No (11/04/2016 12:44:Noemi Odom RN) History of Incompetent Cervix: No (11/04/2016 12:44:Noemi Odom RN) History of Placenta Previa/Abrup: No (11/04/2016 12:44:Noemi Odom RN) History of Macrosomia: No (11/04/2016 12:44:Noemi Odom RN) History of IUGR: No (11/04/2016 12:44:Noemi Odom RN) History of Hemorrhage: No (11/04/2016 12:44:Noemi Odom RN) History of Loss/Stillborn: No (11/04/2016 12:44:Neomi Odom RN) History of : No (11/04/2016 12:44:Noemi Odom RN) History of D (Rh) Sensitization: No (11/04/2016 12:44:Noemi Odom RN) History Recurrent Loss/Stillborn: No (11/04/2016 12:44:Noemi Odom RN) History Depression/PP Depression: No (11/04/2016 12:44:Noemi Odom RN) History of Uterine Anomaly/ROGELIO: No (11/04/2016 12:44:Noemi Odom RN) History of Infertility: No (11/04/2016 12:44:Noemi Odom RN) History of ART Treatment: No (11/04/2016 12:44:Noemi Odom RN) History of ROGELIO: No (11/04/2016 12:44:Noemi Odom RN) Comments Obstetrical History: G1: primary 2010, 34 weeks G2: repeat c/s 2012 G3: current (11/04/2016 12:44:Noemi Odom RN) MEDICAL HISTORY Med Hx Diabetes: Yes (11/04/2016 12:44:Noemi Odom RN) Diabetes Type: Type I - IDDM (11/04/2016 12:44:Noemi Odom RN) Med Hx Hypertension: No (11/04/2016 12:44:Noemi Odom RN) Med Hx Heart Disease: No (11/04/2016 12:44:Noemi Odom RN) Med Hx Autoimmune Disorder: No (11/04/2016 12:44:Noemi Odom RN) Med Hx Kidney Disease/UTI: No (11/04/2016 12:44:Noemi Odom RN) Med Hx Neurologic/Epilepsy: No (11/04/2016 12:44:Noemi Odom RN) Med Hx Psychiatric Disorders: No (11/04/2016 12:44:Noemi Odom RN) Med Hx Hepatitis/Liver Disease: No (11/04/2016 12:44:Noemi Odom RN) Med Hx Varicosities/Phlebitis: No (11/04/2016 12:44:Noemi Odom RN) Med Hx Thyroid Dysfunction: No (11/04/2016 12:44:Noemi Odom RN) Med Hx Trauma/Violence: No (11/04/2016 12:44:Noemi Odom RN) Med Hx Blood Transfusion: No (11/04/2016 12:44:Noemi Odom RN) Med Hx Pulmonary (Asthma,TB): No (11/04/2016 12:44:Noemi Odom RN) Med Hx Breast: No (11/04/2016 12:44:Noemi Odom RN) Med Hx COPY OPERATOR Surgery: No (11/04/2016 12:44:Noemi Odom RN) Med Hx Hospitalization/Surgery: Yes (11/04/2016 12:44:Noemi Odom RN) Med Hx Anesthetic Complications: No (11/04/2016 12:44:Noemi Odom RN) Med Hx Abnormal Pap Smear: No (11/04/2016 12:44:Noemi Odom RN) Other Medical Diseases: No (11/04/2016 12:44:Noemi Odom RN) Med Hx Significant Family Hx: No (11/04/2016 12:44:Noemi Odom RN) Details of Med/Surg Hx: Type 1 Diabetes diagnosed age 1, tonsillectomy, previous c/s, anti E antibody, requesting BTL (11/04/2016 12:44:Noemi Odom RN) INFECTIOUS HISTORY Inf Hx Gonorrhea: No (11/04/2016 12:44:Noemi Odom RN) Inf Hx Chlamydia: No (11/04/2016 12:44:Noemi Odom RN) Inf Hx Syphilis: No (11/04/2016 12:44:Noemi Odom RN) Inf Hx HIV/AIDS: No (11/04/2016 12:44:Noemi Odom RN) Inf Hx Human Papilloma Virus: No (11/04/2016 12:44:Noemi Odom RN) Inf Hx Pt/Partner Genital Herpes: Yes (11/04/2016 12:44:Noemi Odom RN) Inf Hx Tuberculosis/Exposure: No (11/04/2016 12:44:Noemi Odom RN) Inf Hx Hepatitis B,C: No (11/04/2016 12:44:Noemi Odom RN) Inf Hx Rash or Viral Illness: No (11/04/2016 12:44:Noemi Odom RN) Details of Infectious Hx: Taking Acyclovir currently (11/04/2016 12:44:Noemi Odom RN) GENETIC HISTORY Gen Hx Age >=35 at RIN: No (11/04/2016 12:44:Noemi Odom RN) Gen Hx Thalassemia: No (11/04/2016 12:44:Noemi Odom RN) Gen Hx Congenital Heart Defect: No (11/04/2016 12:44:Noemi Odom RN) Gen Hx Neural Tube Defect: No (11/04/2016 12:44:Noemi Odom RN) Gen Hx Down's Syndrome: No (11/04/2016 12:44:Noemi Odom RN) Gen Hx Ryne-Sachs: No (11/04/2016 12:44:Noemi Odom RN) Gen Hx Dana: No (11/04/2016 12:44:Noemi Odom RN) Gen Hx Familial Dysautonomia: No (11/04/2016 12:44:Noemi Odom RN) Gen Hx Sickle Cell Disease/Trait: No (11/04/2016 12:44:Noemi Odom RN) Gen Hx Hemophilia/Blood Disorder: No (11/04/2016 12:44:Noemi Odom RN) Gen Hx Muscular Dystrophy: No (11/04/2016 12:44:Noemi Odom RN) Gen Hx Cystic Fibrosis: No (11/04/2016 12:44:Noemi Odom RN) Gen Hx Huntingtons Chorea: No (11/04/2016 12:44:Noemi Odom RN) Gen Hx Mental Retardation/Autism: No (11/04/2016 12:44:Noemi Odom RN) Gen Hx Tested for Fragile X: No (11/04/2016 12:44:Noemi Odom RN) Gen Hx Other Inher/Chromosomal: No (11/04/2016 12:44:Noemi Odom RN) Gen Hx Maternal Metabolic DO: No (11/04/2016 12:44:Noemi Odom RN) Gen Hx Pt Father or FOB Defect: No (11/04/2016 12:44:Noemi Odom RN) Gen Hx Other Genetic History: No (11/04/2016 12:44:Noemi Odom RN) Gen Hx Drugs/Meds since LMP: Yes (11/04/2016 12:44:Noemi Odom RN) Gen Hx Medications: PNV, Insulin, Acyclovir (11/04/2016 12:44:Noemi Odom RN)
--- NOTE | 2016-12-08 10:46 | L&D Discharge Summary ---
OB Discharge Summary Datetime Report Generated by CPN: 12/08/2016 10:45 DISCHARGE DIAGNOSIS Diagnoses/Symptoms Other: Dehydration, not in labor Gestation: 30.3 Number of Babies in Womb: 1 Parity: 2 DIET/ACTIVITY/RESTRICTIONS Diet: Regular Activity: Normal Activity TEACHING/INSTRUCTIONS/REFERRALS Instructions Given To: Patient Instructions Understood: Patient Verbalized Understanding Referrals: None Educational Materials- Other: Dehydration, kick counts DISCHARGE INFORMATION Discharged AMA: No Discharge Date/Time: 12/06/2016 16:00 Discharged To: Home Discharge Provider Name: Dr Portiaen Accompanied By: self Discharge Method: Ambulatory Condition: Stable FOLLOW UP INFORMATION Follow Up With: [facility] Follow Up On: As Scheduled
--- NOTE | 2016-12-08 10:46 | L&D Admission Assessment ---
LD ADM ASMT Datetime Report Generated by CPN: 12/08/2016 10:45 PATIENT ASSESSMENT Assessment Type: Triage (12/06/2016 11:27:Noemi Odom RN) WEIGHT Weight (lb): 156 (12/06/2016 11:16:QS system process) Weight (kg): 70.9 (12/06/2016 11:16:QS system process) Total Wt Gain (lb): 13 (12/06/2016 11:16:QS system process) Wt Gain (kg): 6.0 (12/06/2016 11:16:QS system process) BMI: 24.4 (12/06/2016 11:16:QS system process) PAIN Pain Scale: 2 (12/06/2016 15:47:Noemi Odom RN) Pain Scale: 4 (12/06/2016 11:27:Noemi Odom RN) Pain Presence: Intermittent (12/06/2016 15:47:Noemi Odom RN) Pain Presence: Constant (12/06/2016 11:27:Noemi Odom RN) Pain Type: Contraction (12/06/2016 15:47:Noemi Odom RN) Pain Type: Sharp; Contraction; Stabbing (12/06/2016 11:27:Noemi Odom RN) Pain Location: Abdomen (12/06/2016 15:47:Noemi Odom RN) Pain Location: Abdomen (12/06/2016 11:27:Noemi Odom RN) Pain Comments: Pt feeling much better than before. (12/06/2016 15:47:Noemi Odom RN) CONTRACTIONS Frequency (min): irreg (12/06/2016 15:50:Noemi Odom RN) Frequency (min): 5-8 (12/06/2016 15:15:Noemi Odom RN) Frequency (min): 2-8 (12/06/2016 14:45:Noemi Odom RN) Frequency (min): 3-8 (12/06/2016 14:15:Noemi Odom RN) Frequency (min): x2 (12/06/2016 13:45:Noemi Odom RN) Frequency (min): 3-6 (12/06/2016 13:15:Noemi Odom RN) Frequency (min): 2-5 (12/06/2016 12:45:Noeim Odom RN) Frequency (min): 2-5 (12/06/2016 12:15:Noemi Odom RN) Frequency (min): 3-5 (12/06/2016 11:45:Noemi Odom RN) Frequency (min): pt states she has been coughing since Monday and has constant sharp lower abdominal pain (12/06/2016 11:27:Noemi Odom RN) Duration (sec): 40-70 (12/06/2016 15:50:Noemi Odom RN) Duration (sec): 50-90 (12/06/2016 15:15:Noemi Odom RN) Duration (sec): 40-80 (12/06/2016 14:45:Noemi Odom RN) Duration (sec): 30-90 (12/06/2016 14:15:Noemi Odom RN) Duration (sec): 50-70 (12/06/2016 13:45:Noemi Odom RN) Duration (sec): 40-80 (12/06/2016 13:15:Noemi Odom RN) Duration (sec): 40-80 (12/06/2016 12:45:Noemi Odom RN) Duration (sec): 40-80 (12/06/2016 12:15:Noemi Odom RN) Duration (sec): 50-80 (12/06/2016 11:45:Noemi Odom RN) Quality: Mild (12/06/2016 15:50:Noemi Odom RN) Quality: Mild (12/06/2016 15:15:Noemi Odom RN) Quality: Mild (12/06/2016 14:45:Noemi Odom RN) Quality: Mild/Moderate (12/06/2016 14:15:Noemi Odom RN) Quality: Mild/Moderate (12/06/2016 13:45:Noemi Odom RN) Quality: Mild/Moderate (12/06/2016 13:15:Noemi Odom RN) Quality: Mild/Moderate (12/06/2016 12:45:Noemi Odom RN) Quality: Mild/Moderate (12/06/2016 12:15:Noemi Odom RN) Quality: Mild/Moderate (12/06/2016 11:45:Noemi Odom RN) Pattern: Normal: <= 5 Contractions in 10 Minutes (12/06/2016 12:15:Noemi Odom RN) Resting Tone Mcdonald: Relaxed (12/06/2016 15:50:Noemi Odom RN) Resting Tone Mcdonald: Relaxed (12/06/2016 15:15:Noemi Odom RN) Resting Tone Mcdonald: Relaxed (12/06/2016 14:45:Noemi Odom RN) Resting Tone Mcdonald: Relaxed (12/06/2016 14:15:Noemi Odom RN) Resting Tone Mcdonald: Relaxed (12/06/2016 13:45:Noemi Odom RN) Resting Tone Mcdonald: Relaxed (12/06/2016 13:15:Noemi Odom RN) Resting Tone Mcdonald: Relaxed (12/06/2016 12:45:Noemi Odom RN) Resting Tone Mcdonald: Relaxed (12/06/2016 12:15:Noemi Odom RN) Resting Tone Mcdonald: Relaxed (12/06/2016 11:45:Noemi Odom RN) NEURO Level of Consciousness: Fully Conscious (12/06/2016 11:27:Noemi Odom RN) DTR's/Clonus: DTRs 2+; No Clonus (12/06/2016 11:27:Noemi Odom RN) Headache: Generalized (12/06/2016 11:27:Noemi Odom RN) Dizziness: No (12/06/2016 11:27:Noemi Odom RN) Blurred Vision: No (12/06/2016 11:27:Noemi Odom RN) Extremity Numbness/Tingling : None (12/06/2016 11:27:Noemi Odom RN) Extremity Movement: Full Range of Motion (12/06/2016 11::Noemi Odom RN) CARDIOVASCULAR Heart Rhythm: Regular (12/06/2016 11:27:Noemi Odom RN) Nailbeds: [place] (12/06/2016 11:27:Noemi Odom RN) Capillary Refill: Less than 3 Seconds (12/06/2016 11:27:Noemi Odom RN) Facial Edema: None (12/06/2016 11:27:Noemi Odom RN) RESPIRATORY Respiratory Effort: Unlabored; Regular Rhythm; Equal Expansion (12/06/2016 11:27:Noemi Odom RN) Breath Sounds, Left: Clear and Equal (12/06/2016 11:27:Noemi Odom RN) Breath Sounds, Right: Clear and Equal (12/06/2016 11:27:Noemi Odom RN) Cough Productivity: None (12/06/2016 11:27:Noemi Odom RN) GASTROINTESTINAL Nausea/Vomiting: Denies (12/06/2016 11:27:Noemi Odom RN) Bowel Sounds: Normoactive; All Quadrants (12/06/2016 11:27:Noemi Odom RN) RUQ Epigastric Pain: Denies (12/06/2016 11:27:Noemi Odom RN) GENITOURINARY Bladder: Nondistended (12/06/2016 11:27:Noemi Odom RN) Frequency of Urination: No (12/06/2016 11:27:Noemi Odom RN) Urination Burning: No (12/06/2016 11:27:Noemi Odom RN) CVA Tenderness: No (12/06/2016 11:27:Noemi Odom RN) Vaginal Bleeding: None (12/06/2016 11::Noemi Odom RN) Vaginal Discharge Color: N/A (12/06/2016 11::Noemi Odom RN) INTEGUMENTARY Skin Color: Normal for Race (12/06/2016 11:27:Noemi Odom RN) Skin Temperature: Warm (12/06/2016 11::Noemi Odom RN) Skin Moisture: Dry (12/06/2016 11::Noemi Odom RN) CHRISTOPHER SKIN ASSESSMENT Christopher Scale Sensory Perception: No Impairment- Responds to verbal commands. Has no sensory deficit which would limit ability to feel or voice pain or discomfort (12/06/2016 11:27:Noemi Odom RN) Christopher Scale Moisture: Rarely Moist- Skin is usually dry. Linen only requires changing at routine intervals (12/06/2016 11::Noemi Odom RN) Christopher Scale Activity: Walks Frequently- Walks outside the room at least twice a day and inside room at least every 2 hours during the day. (12/06/2016 11:27:Noemi Odom RN) Christopher Scale Mobility: No Limitations- Makes major and frequent changes in position without assistance (12/06/2016 11:27:Noemi Odom RN) Christopher Scale Nutrition: Excellent- Eats most of every meal. Never refuses a meal. Usually eats a total of 4 or more servings of meat and dairy products. Occasionally eats between meals. Does not require supplementation (12/06/2016 11:27:Noemi Odom RN) Christopher Scale Friction and Shear: No Apparent Problem- Moves in bed and in chair independently and has sufficient muscle strength to lift up completely during move. Maintains good position in bed or chair at all times (12/06/2016 11:27:Noemi Odom RN) Christopher Scale Total: 23 (12/06/2016 11::QS system process) Christopher Scale Risk: No Risk of Pressure Ulcer Noted at this Time (12/06/2016 11:27:QS system process) SUPPORT Emotional State: Calm/Relaxed (12/06/2016 11:27:Noemi Odom RN) SAFETY Call Al Within Reach: Yes (12/06/2016 11:27:Noemi Odom RN) Side Rails Up: Yes (12/06/2016 11:27:Noemi Odom RN) Bed Wheels Locked: Yes (12/06/2016 11:27:Noemi Odom RN) Arm Bands Present: Yes (12/06/2016 11:27:Noemi Odom RN) FALL SCREEN Fall Risk History of Falling: (0) No (12/06/2016 11:27:Noemi Odom RN) Fall Risk Secondary Diagnosis: (0) No (12/06/2016 11:27:Noemi Odom RN) Fall Risk Ambulatory Aid: (0) None/Bedrest/Wheelchair/Nurse Assist (12/06/2016 11:27:Noemi Odom RN) Fall Risk IV Therapy: (0) No (12/06/2016 11:27:Noemi Odom RN) Fall Risk Gait: (0) Normal/Bedrest/Immobile (12/06/2016 11:27:Noemi Odom RN) Fall Risk Mental Status: (0) Oriented to Own Ability (12/06/2016 11:27:Noemi Odom RN) Fall Risk Score: 0 (12/06/2016 11:27:QS system process) Fall Risk Score Definition: No Risk: No action required (12/06/2016 11:27:QS system process) BABY A FHR Baseline Rate (bpm) Baby A: 145 (12/06/2016 15:50:Noemi Odom RN) FHR Baseline Rate (bpm) Baby A: 135 (12/06/2016 15:15:Noemi Odom RN) FHR Baseline Rate (bpm) Baby A: 145 (12/06/2016 14:45:Noemi Odom RN) FHR Baseline Rate (bpm) Baby A: 135 (12/06/2016 14:15:Noemi Odom RN) FHR Baseline Rate (bpm) Baby A: 135 (12/06/2016 13:45:Noemi Odom RN) FHR Baseline Rate (bpm) Baby A: 145 (12/06/2016 13:15:Noemi Odom RN) FHR Baseline Rate (bpm) Baby A: 140 (12/06/2016 12:45:Noemi Odom RN) FHR Baseline Rate (bpm) Baby A: 145 (12/06/2016 12:15:Noemi Odom RN) FHR Baseline Rate (bpm) Baby A: 145 (12/06/2016 11:45:Noemi Odom RN) Variability Baby A: Moderate 6-25 bpm (12/06/2016 15:50:Noemi Odom RN) Variability Baby A: Moderate 6-25 bpm (12/06/2016 15:15:Noemi Odom RN) Variability Baby A: Moderate 6-25 bpm (12/06/2016 14:45:Noemi Odom RN) Variability Baby A: Moderate 6-25 bpm (12/06/2016 14:15:Noemi Odom RN) Variability Baby A: Moderate 6-25 bpm (12/06/2016 13:45:Noemi Odom RN) Variability Baby A: Moderate 6-25 bpm (12/06/2016 13:15:Noemi Odom RN) Variability Baby A: Moderate 6-25 bpm (12/06/2016 12:45:Noemi Odom RN) Variability Baby A: Moderate 6-25 bpm (12/06/2016 12:15:Noemi Odom RN) Variability Baby A: Moderate 6-25 bpm (12/06/2016 11:45:Noemi Odom RN) Accelerations Baby A: 10X10 (12/06/2016 15:50:Noemi Odom RN) Accelerations Baby A: 10X10 (12/06/2016 15:15:Noemi Odom RN) Accelerations Baby A: 15X15 (12/06/2016 14:45:Noemi Odom RN) Accelerations Baby A: 15X15 (12/06/2016 14:15:Noemi Odom RN) Accelerations Baby A: 15X15 (12/06/2016 13:45:Noemi Odom RN) Accelerations Baby A: 15X15 (12/06/2016 13:15:Noemi Odom RN) Accelerations Baby A: 15X15 (12/06/2016 12:45:Noemi Odom RN) Accelerations Baby A: 15X15 (12/06/2016 12:15:Noemi Odom RN) Accelerations Baby A: None (12/06/2016 11:45:Noemi Odom RN) Decelerations Baby A: None (12/06/2016 15:50:Noemi Odom RN) Decelerations Baby A: Variable (12/06/2016 15:15:Noemi Odom RN) Decelerations Baby A: None (12/06/2016 14:45:Noemi Odom RN) Decelerations Baby A: None (12/06/2016 14:15:Noemi Odom RN) Decelerations Baby A: None (12/06/2016 13:45:Noemi Odom RN) Decelerations Baby A: None (12/06/2016 13:15:Noemi Odom RN) Decelerations Baby A: None (12/06/2016 12:45:Noemi Odom RN) Decelerations Baby A: Late (12/06/2016 12:15:Noemi Odom RN) Decelerations Baby A: Late (12/06/2016 11:45:Noemi Odom RN)
--- NOTE | 2016-12-08 10:46 | Antepartum Discharge Summary ---
Antepartum DC Datetime Report Generated by CPN: 12/08/2016 10:45 DIET/ACTIVITY/RESTRICTIONS Diet: Regular (12/06/2016 16:10:Noemi Odom RN) Activity: Normal Activity (12/06/2016 16:10:Noemi Odom RN) TEACHING/INSTRUCTIONS/REFERRALS Instructions Given To: Patient (12/06/2016 16:10:Noemi Odmo RN) Instructions Understood: Patient Verbalized Understanding (12/06/2016 16:10:Noemi Odom, RN) Referrals: None (12/06/2016 16:10:Noemi Odom RN) Educational Materials- Other: Dehydration, kick counts (12/06/2016 16:10:Noemi Odom RN) DISCHARGE INFORMATION Discharged AMA: No (12/06/2016 16:10:Noemi Odom RN) Discharge Date/Time: 12/06/2016 16:00 (12/06/2016 16:10:Noemi Odom RN) Discharged To: Home (12/06/2016 16:10:Noemi Odom RN) Discharge Provider Name: Dr Bennett (12/06/2016 16:10:Noemi Odom RN) Accompanied By: self (12/06/2016 16:10:Noemi Odom RN) Discharge Method: Ambulatory (12/06/2016 16:10:Noemi Odom RN) Condition: Stable (12/06/2016 16:10:Noemi Odom RN) FOLLOW UP INFORMATION Follow Up With: [facility] (12/06/2016 16:10:Noemi Odom RN) Follow Up On: As Scheduled (12/06/2016 16:10:Noemi Odom RN)
--- NOTE | 2016-12-08 10:46 | L&D Current Admission ---
Current Admit Datetime Report Generated by CPN: 12/08/2016 10:45 ADMISSION INFORMATION Chief Complaint: Contractions (12/06/2016 11:27:Noemi Odom RN) Chief Complaint: Dizziness x2 days; states blood glucose has been elevated and pt was seen [facility] in [place] and they reccommended her be admitted to the hospital for blood glucose regulation and she denied admission. (11/04/2016 12:45:Carrington Ochoa RN)
--- NOTE | 2016-12-08 10:46 | L&D General Admission ---
General Admit Datetime Report Generated by CPN: 12/08/2016 10:45 INFORMATION Patient Age: 25 (09/28/2015 16:41:QS system process) EDC: 02/11/2017 00:00 (11/04/2016 12:44:Carrington Ochoa RN) : 3 (11/04/2016 12:44:Noemi Odom RN) Para: 2 (11/04/2016 12:44:Noemi Odom RN) Term: 1 (11/04/2016 12:44:Noemi Odom RN) : 1 (11/04/2016 12:44:Noemi Odom RN) Spontaneous Abortions: 0 (11/04/2016 12:44:Noemi Odom RN) Induced Abortions: 0 (11/04/2016 12:44:Noemi Odom RN) Livin (11/04/2016 12:44:Noemi Odom RN) Cesareans: 2 (11/04/2016 12:44:Noemi Odom RN) VBACs: 0 (11/04/2016 12:44:Noemi Odom RN) Ectopic: 0 (11/04/2016 12:44:Noemi Odom RN) Multiple Births: 0 (11/04/2016 12:44:Noemi Odom RN) Baby, Number in Womb: 1 (11/04/2016 12:44:Noemi Odom RN) CARE Primary Candy Puller: [facility] (11/04/2016 12:44:Noemi Odom RN) Month of 1st Visit: June (11/04/2016 12:44:Noemi Odom RN) Prepregnancy Weight (lb): 143 (11/04/2016 12:44:Noemi Odom RN) Prepregnancy Weight (kg): 65.0 (11/04/2016 12:44:QS system process) Height (in): 66 (12/06/2016 11:16:QS system process) Height (in): 67 (11/04/2016 16:29:QS system process) Height (in): 67 (11/04/2016 14:17:QS system process) Height (in): 67 (11/04/2016 13:56:QS system process) Height (in): 67 (11/04/2016 12:44:QS system process) Height (in): 66 (08/03/2016 13:57:QS system process) Height (in): 66 (07/26/2016 12:10:QS system process) Height (in): 66 (09/29/2015 08:36:QS system process) Height (in): 66 (09/28/2015 18:48:QS system process) Height (in): 66 (09/28/2015 16:44:QS system process) Height (in): 66 (09/28/2015 16:41:QS system process) ALLERGIES Medication Allergy: No (11/04/2016 12:44:Noemi Odom RN) Medication Allergies: No Known Allergies (12/06/2016) (12/06/2016 11:07:QS system process) Medication Allergies: No Known Allergies (11/04/2016) (11/04/2016 12:42:QS system process) Medication Allergies: No Known Allergies (07/26/2016) (07/26/2016 12:10:QS system process) Medication Allergies: No Known Allergies (09/28/2015) (09/28/2015 16:41:QS system process) Latex Allergy: No Latex Allergies (11/04/2016 12:44:Noemi Odom RN) COMMUNICATION Primary Language: Urdu (11/04/2016 12:44:Noemi Odom RN) Medical Tx Preferred Language: Urdu (11/04/2016 12:44:Noemi Odom RN) DEMOGRAPHICS Address: [address] [place] [id number] (09/28/2015 18:48:QS system process) Address: [address] [place] [id number] (09/28/2015 16:41:QS system process) Zipcode: [phone] (09/28/2015 16:41:QS system process) Home (09/28/2015 16:41:QS system process) Work (09/28/2015 16:41:QS system process) SSN: [id number] (09/28/2015 16:41:QS system process) Next of Kin Name: DREA MARTIN (07/26/2016 12:10:QS system process) Next of Kin Name: MADELINE MARTIN (09/28/2015 16:41:QS system process) Next of Kin (09/28/2015 16:41:QS system process) Next of Kin Relationship: MO (09/28/2015 16:41:QS system process) Date of : 1990 (09/28/2015 16:41:QS system process) Marital Status: Single (09/28/2015 16:41:QS system process) Sex: Female (09/28/2015 16:41:QS system process) Race: (09/28/2015 16:41:QS system process) Ethnicity: Non- or (09/28/2015 16:41:QS system process) Evangelical: None (09/28/2015 16:41:QS system process) DRUG AND ALCOHOL USE Alcohol: No (11/04/2016 12:44:Noemi Odom RN) Cigarettes: Never Smoker. [id number] (11/04/2016 12:44:Noemi Odom RN) Marijuana: No (11/04/2016 12:44:Noemi Odom RN) Cocaine: No (11/04/2016 12:44:Noemi Odom RN) Other Illicit Drugs: No (11/04/2016 12:44:Noemi Odom RN) VACCINE HISTORY Influenza Vaccine: Yes (11/04/2016 12:44:Noemi Odom RN) Pneumococcal Vaccine: No (11/04/2016 12:44:Noemi Odom RN) Tetanus Vaccine: No (11/04/2016 12:44:Noemi Odom RN) Tdap Vaccine: No (11/04/2016 12:44:Noemi Odom RN) Hepatitis B Vaccine: No (11/04/2016 12:44:Noemi Odom RN) Benefit of Breast Feed Discussed: Yes (11/04/2016 12:44:Noemi Odom RN) Circumcision: Yes (11/04/2016 12:44:Noemi Odom RN) Classes Attended: No (11/04/2016 12:44:Noemi Odom RN) Tubal Ligation: Yes (11/04/2016 12:44:Noemi Odom RN) Tubal Authorization Signed: Yes (11/04/2016 12:44:Noemi Odom RN) Consent: N/A (11/04/2016 12:44:Noemi Odom RN) Consent Signed: No (11/04/2016 12:44:Noemi Odom RN) Pain Management Plans: Spinal (11/04/2016 12:44:Noemi Odom RN) Support Person: Drea (11/04/2016 12:44:Noemi Odom RN) Support Person Relationship: Mother (11/04/2016 12:44:Noemi Odom RN) Cultural/Spritual Practice: No (11/04/2016 12:44:Noemi Odom RN) Spir/Cult Dietary Needs: No (11/04/2016 12:44:Noemi Odom RN) LIVING SITUATION/DISCHARGE PLAN Living Arrangements: Apartment (11/04/2016 12:44:Noemi Odom RN) Adequate Access to:: Electric; Heat; Refrigeration; Plumbing/Running water; Phone; Transportation (11/04/2016 12:44:Noemi Odom RN) WIC Program: Yes (11/04/2016 12:44:Noemi Odom RN) Discharge Sales Representatives Person: family (11/04/2016 12:44:Noemi Odom RN) Person to Help after Discharge: family (11/04/2016 12:44:Noemi Odom RN) Currently Using Commun Resources: No (11/04/2016 12:44:Noemi Odom RN) Outside Agency/Records Supervisor: No (11/04/2016 12:44:Noemi Odom RN) Car Seat for Discharge: No (11/04/2016 12:44:Noemi Odom RN) Need Help to Obtain Car Seat: will get one soon (11/04/2016 12:44:Noemi Odom RN) Adoption Requested: No (11/04/2016 12:44:Noemi Odom RN) Pt Contact w/[facility] : N/A (11/04/2016 12:44:Noemi Odom RN) LABS Blood Type: O Positive (11/04/2016 12:44:Noemi Odom RN) Antibody Screen: postitive (11/04/2016 12:44:Noemi Odom RN) Hemoglobin: 12.0 (12/06/2016 12:52:QS system process) Hemoglobin: 10.4 L (09/29/2015 21:58:QS system process) Hemoglobin: 10.7 L (09/29/2015 19:10:QS system process) Hemoglobin: 10.9 L (09/29/2015 14:03:QS system process) Hemoglobin: 12.1 (09/29/2015 10:19:QS system process) Hemoglobin: 10.9 L (09/29/2015 06:27:QS system process) Hemoglobin: 11.7 L (09/29/2015 02:25:QS system process) Hematocrit: 37.3 (12/06/2016 12:52:QS system process) Hematocrit: 32.9 L (09/29/2015 21:58:QS system process) Hematocrit: 34.3 L (09/29/2015 19:10:QS system process) Hematocrit: 35.0 L (09/29/2015 14:03:QS system process) Hematocrit: 39.1 (09/29/2015 10:19:QS system process) Hematocrit: 34.0 L (09/29/2015 06:27:QS system process) Hematocrit: 37.6 (09/29/2015 02:25:QS system process) MCV: 86 (12/06/2016 12:52:QS system process) MCV: 87 (09/29/2015 21:58:QS system process) MCV: 87 (09/29/2015 19:10:QS system process) MCV: 88 (09/29/2015 14:03:QS system process) MCV: 89 (09/29/2015 10:19:QS system process) MCV: 87 (09/29/2015 06:27:QS system process) MCV: 88 (09/29/2015 02:25:QS system process) RPR/VDRL: Nonreactive (11/04/2016 12:44:Noemi Odom RN) HIV Exposure Test: Negative (11/04/2016 12:44:Noemi Odom RN) Hepatitis B: Negative (11/04/2016 12:44:Noemi Odom RN) OB/PREVIOUS HISTORY Previous Procedures: Ultrasound; NST (11/04/2016 12:44:Noemi Odom RN) Current Procedures: Ultrasound (11/04/2016 12:44:Noemi Odom RN) History of Previous : Yes (11/04/2016 12:44:Noemi Odom RN) History of Gestational Diabetes: No (11/04/2016 12:44:Noemi Odom RN) History of PIH: No (11/04/2016 12:44:Noemi Odom RN) History of Incompetent Cervix: No (11/04/2016 12:44:Noemi Odom RN) History of Placenta Previa/Abrup: No (11/04/2016 12:44:Noemi Odom RN) History of Macrosomia: No (11/04/2016 12:44:Noemi Odom RN) History of IUGR: No (11/04/2016 12:44:Noemi Odom RN) History of Hemorrhage: No (11/04/2016 12:44:Noemi Odom RN) History of Loss/Stillborn: No (11/04/2016 12:44:Noemi Odom RN) History of : No (11/04/2016 12:44:Noemi Odom RN) History of D (Rh) Sensitization: No (11/04/2016 12:44:Noemi Odom RN) History Recurrent Loss/Stillborn: No (11/04/2016 12:44:Noemi Odom RN) History Depression/PP Depression: No (11/04/2016 12:44:Noemi Odom RN) History of Uterine Anomaly/ROGELIO: No (11/04/2016 12:44:Noemi Odom RN) History of Infertility: No (11/04/2016 12:44:Noemi Odom RN) History of ART Treatment: No (11/04/2016 12:44:Noemi Odom RN) History of ROGELIO: No (11/04/2016 12:44:Noemi Odom RN) Comments Obstetrical History: G1: primary 2010, 34 weeks G2: repeat c/s 2012 G3: current (11/04/2016 12:44:Noemi Odom RN) MEDICAL HISTORY Med Hx Diabetes: Yes (11/04/2016 12:44:Noemi Odom RN) Diabetes Type: Type I - IDDM (11/04/2016 12:44:Noemi Odom RN) Med Hx Hypertension: No (11/04/2016 12:44:Noemi Odom RN) Med Hx Heart Disease: No (11/04/2016 12:44:Noemi Odom RN) Med Hx Autoimmune Disorder: No (11/04/2016 12:44:Noemi Odom RN) Med Hx Kidney Disease/UTI: No (11/04/2016 12:44:Noemi Odom RN) Med Hx Neurologic/Epilepsy: No (11/04/2016 12:44:Noemi Odom RN) Med Hx Psychiatric Disorders: No (11/04/2016 12:44:Noemi Odom RN) Med Hx Hepatitis/Liver Disease: No (11/04/2016 12:44:Noemi Odom RN) Med Hx Varicosities/Phlebitis: No (11/04/2016 12:44:Noemi Odom RN) Med Hx Thyroid Dysfunction: No (11/04/2016 12:44:Noemi Odom RN) Med Hx Trauma/Violence: No (11/04/2016 12:44:Noemi Odom RN) Med Hx Blood Transfusion: No (11/04/2016 12:44:Noemi Odom RN) Med Hx Pulmonary (Asthma,TB): No (11/04/2016 12:44:Noemi Odom RN) Med Hx Breast: No (11/04/2016 12:44:Noemi Odom RN) Med Hx DIRECTOR PROSPECT Surgery: No (11/04/2016 12:44:Noemi Odom RN) Med Hx Hospitalization/Surgery: Yes (11/04/2016 12:44:Noemi Odom RN) Med Hx Anesthetic Complications: No (11/04/2016 12:44:Noemi Odom RN) Med Hx Abnormal Pap Smear: No (11/04/2016 12:44:Noemi Odom RN) Other Medical Diseases: No (11/04/2016 12:44:Noemi Odom RN) Med Hx Significant Family Hx: No (11/04/2016 12:44:Noemi Odom RN) Details of Med/Surg Hx: Type 1 Diabetes diagnosed age 1, tonsillectomy, previous c/s, anti E antibody, requesting BTL (11/04/2016 12:44:Noemi Odom RN) INFECTIOUS HISTORY Inf Hx Gonorrhea: No (11/04/2016 12:44:Noemi Odom RN) Inf Hx Chlamydia: No (11/04/2016 12:44:Noemi Odom RN) Inf Hx Syphilis: No (11/04/2016 12:44:Noemi Odom RN) Inf Hx HIV/AIDS: No (11/04/2016 12:44:Noemi Odom RN) Inf Hx Human Papilloma Virus: No (11/04/2016 12:44:Noemi Odom RN) Inf Hx Pt/Partner Genital Herpes: Yes (11/04/2016 12:44:Noemi Odom RN) Inf Hx Tuberculosis/Exposure: No (11/04/2016 12:44:Noemi Odom RN) Inf Hx Hepatitis B,C: No (11/04/2016 12:44:Noemi Odom RN) Inf Hx Rash or Viral Illness: No (11/04/2016 12:44:Noemi Odom RN) Details of Infectious Hx: Taking Acyclovir currently (11/04/2016 12:44:Noemi Odom RN) GENETIC HISTORY Gen Hx Age >=35 at RIN: No (11/04/2016 12:44:Noemi Odom RN) Gen Hx Thalassemia: No (11/04/2016 12:44:Noemi Odom RN) Gen Hx Congenital Heart Defect: No (11/04/2016 12:44:Noemi Oodm RN) Gen Hx Neural Tube Defect: No (11/04/2016 12:44:Noemi Odom RN) Gen Hx Down's Syndrome: No (11/04/2016 12:44:Noemi Odom RN) Gen Hx Ryne-Sachs: No (11/04/2016 12:44:Noemi Odom RN) Gen Hx Dana: No (11/04/2016 12:44:Noemi Odom RN) Gen Hx Familial Dysautonomia: No (11/04/2016 12:44:Noemi Odom RN) Gen Hx Sickle Cell Disease/Trait: No (11/04/2016 12:44:Noemi Odom RN) Gen Hx Hemophilia/Blood Disorder: No (11/04/2016 12:44:Noemi Odom RN) Gen Hx Muscular Dystrophy: No (11/04/2016 12:44:Noemi Odom RN) Gen Hx Cystic Fibrosis: No (11/04/2016 12:44:Noemi Odom RN) Gen Hx Huntingtons Chorea: No (11/04/2016 12:44:Noemi Odom RN) Gen Hx Mental Retardation/Autism: No (11/04/2016 12:44:Noemi Odom RN) Gen Hx Tested for Fragile X: No (11/04/2016 12:44:Noemi Odom RN) Gen Hx Other Inher/Chromosomal: No (11/04/2016 12:44:Noemi Odom RN) Gen Hx Maternal Metabolic DO: No (11/04/2016 12:44:Noemi Odom RN) Gen Hx Pt Father or FOB Defect: No (11/04/2016 12:44:Noemi Odom RN) Gen Hx Other Genetic History: No (11/04/2016 12:44:Noemi Odom RN) Gen Hx Drugs/Meds since LMP: Yes (11/04/2016 12:44:Noemi Odom RN) Gen Hx Medications: PNV, Insulin, Acyclovir (11/04/2016 12:44:Noemi Odom RN)
== END 2016-12-06 16:00 | disposition home or self-care (01) ==
LOC: LC 10:47
PROVIDERS: ATTEND Specialist
PROC: 4A1HXCZ Monitoring of Products of Conception, Cardiac Rate, External Approach (ICD-10-PCS; principal; 2016-12-06)
DX: O99.283 Endocrine, nutritional and metabolic diseases complicating pregnancy, third trimester (principal); Z3A.30 30 weeks gestation of pregnancy
CPT/HCPCS: 59899; 86900; 86901; 36415; 86870; 86850; 82962; 85025; 86592; 80053; 81001; 80307; 87491; 87591; 76815; J1815

== ENCOUNTER 2017-01-12 12:59 | Outpatient (CLI) | payer BC, MEDICAID ==
--- NOTE | 2017-01-12 14:26 | Non Stress Test Report ---
Non Stress Test Datetime Report Generated by CPN: 01/12/2017 14:26 DEMOGRAPHIC EGA NST: 35.5 INDICATION Indication for Study: Ordered by Provider Indication for Study (NST) Other: nst MONITORING Monitor Explained: Monitor Explained; Test Explained; Patient Verbalized Understanding Time on Monitor: 01/12/2017 13:07 Time off Monitor: 01/12/2017 13:50 NST Duration: 43 NST INTERVENTIONS NST Interventions: PO Hydration; Reposition Patient Physician Notified NST: J. Rashid CNM BABY A: [id number] BABY A Contraction Frequency : occassional FHR Baseline : 120 Accelerations : 15X15 Decelerations : None Variability : Moderate 6-25bpm NST Review: Meets Criteria for Reactive NST NST Review and Verified By : AKeith Madhavi RN NST Results: Reactive NST REPORT Report Trigger: Send Report
== END 2017-01-12 13:53 | disposition home or self-care (01) ==
LOC: LC 12:59
PROVIDERS: ATTEND Student in an Organized Health Care Education/Training Program
PROC: 4A1HXCZ Monitoring of Products of Conception, Cardiac Rate, External Approach (ICD-10-PCS; principal; 2017-01-12)
DX: Z34.93 Encounter for supervision of normal pregnancy, unspecified, third trimester (principal); Z36 Encounter for antenatal screening of mother; Z3A.35 35 weeks gestation of pregnancy
CPT/HCPCS: 59025

== ENCOUNTER 2017-01-12 18:36 | Observation (INO) | payer BC, MEDICAID ==
[2017-01-12] MEDS ORDERED: INSULIN REG, HUMAN 100 UNIT/ML 3 ML VIAL (PYX) ONE (19:19)
[2017-01-12 19:28] LABS: APPEARANCE,URINE CLEAR; BILIRUBIN,URINE NEGATIVE (NEGATIVE); GLUCOSE, URINE >=500 mg/dL (NEGATIVE); KETONES,URINE 80 mg/dL (NEGATIVE); LEUKOCYTE ESTERASE,URINE TRACE (NEGATIVE); NITRITE,URINE NEGATIVE (NEGATIVE); PROTEIN,URINE NEGATIVE (NEGATIVE); URINE SPECIFIC GRAVITY 1.027; UROBILINOGEN,URINE NEGATIVE mg/dL (<2.0)
[2017-01-12] MEDS ORDERED: INSULIN REG, HUMAN 100 UNIT/ML 3 ML VIAL (PYX) SUBCUT ONE ×4 (19:45→21:34)
[2017-01-12 19:53] LABS: ABSOLUTE BASOPHILS # (AUTO) 0.1 10^3/uL (0.0-0.2); ABSOLUTE EOSINOPHILS # (AUTO) 0.1 10^3/uL (0.0-0.6); ABSOLUTE LYMPHOCYTES (AUTO) 1.4 10^3/uL (0.5-4.7); ABSOLUTE MONOCYTES (AUTO) 0.5 10^3/uL (0.1-1.4); ABSOLUTE NEUT (AUTO) 3.2 10^3/uL (1.7-8.2); BASOPHILS % (AUTO) 1.5 % (0-2); LYMPHOCYTES % (AUTO) 26.5 % (13-45); MEAN CORPUSCULAR HGB CONC 32.4 g/dL (32.0-36.0); MEAN CORPUSCULAR VOLUME 83 fl (80-97); MONOCYTES % (AUTO) 9.1 % (3-13); RED BLOOD COUNT 4.44 10^6/uL (3.72-5.28); SEGMENTED NEUTROPHILS % (AUTO) 61.9 % (42-78); WHITE BLOOD COUNT 5.2 10^3/uL (4.0-10.5)
[2017-01-12 20:14] LABS: ALANINE AMINOTRANSFERASE 38 U/L (9-52); ALKALINE PHOSPHATASE 94 U/L (38-126); ANION GAP 12 (5-19); ASPARTATE AMINO TRANSFERASE 37 U/L (14-36); BILIRUBIN,DIRECT 0.4 mg/dL (0.0-0.4); BILIRUBIN,TOTAL 0.8 mg/dL (0.2-1.3); BLOOD UREA NITROGEN 8 mg/dL (7-20); CALCIUM 8.7 mg/dL (8.4-10.2); CARBON DIOXIDE 19 mmol/L (22-30); CHLORIDE 103 mmol/L (98-107); CREATININE RESULT 0.61 mg/dL (0.52-1.25); GLUCOSE 300 mg/dL (75-110); POTASSIUM 4.4 mmol/L (3.6-5.0); SODIUM 134.3 mmol/L (137-145); TOTAL PROTEIN 5.9 g/dL (6.3-8.2)
[2017-01-12] MEDS: NORMAL SALINE 1000 ML 1,000 ML IV PRN (20:14)
[2017-01-12 22:11] LABS: URINE BARBITURATES SCREEN NEGATIVE; URINE METHADONE SCREEN NEGATIVE; URINE OPIATES LOW NEGATIVE; URINE PHENCYCLIDINE SCREEN NEGATIVE
[2017-01-12] MEDS ORDERED: INSULIN NPH (ISOPHANE), HUMAN 100 UNIT/ML 3 ML SUBCUT SCH (22:30)
[2017-01-12] MEDS ORDERED: INSULIN NPH (ISOPHANE), HUMAN 100 UNIT/ML 3 ML SUBCUT ONE (22:30)
[2017-01-12] MEDS ORDERED: INSULIN NPH (ISOPHANE), HUMAN 100 UNIT/ML 3 ML ONE (23:15)
[2017-01-13] MEDS: NORMAL SALINE 1000 ML 1,000 ML IV PRN ×2 (00:58→10:30)
--- NOTE | 2017-01-13 06:41 | L&D Progress Notes ---
PROGRESS NOTES Datetime Report Generated by CPN: 01/13/2017 06:41 PROGRESS NOTE Impression: Reactive Non Stress Test Plan: Continue Present Management; Transfer Informed Consent Obtained: Section Delivery; Risks, Benefits and Alternatives Discussed Vital Signs : Reviewed; Within Normal Limits Comment: 26yo at 35+6ega here for observation and management of Accucheck. Reviewed with pt that she needs to have fastings less than 90s and 2 hr pp of 120. Dr. Holm going to come see the patient. Pt with improved accucheck control overnight. Home meds written for. Reviewed HbA1c elevated with pt. Will d/w oncoming re: possible notify MFM and getting pt close f/u with them. If remains stable today then may be able to discharge to home with f/u with MFM. VAGINAL EXAM Dilatation: 0 Effacement: 0 Station: -3 MEMBRANES Membranes: Intact FETUS A FHR - Baseline: 120 Monitoring: External US Variability: Moderate 6-25bpm Accelerations: 15X15 Decelerations: None FHR Category: Category I : 22.0 Estimated Weight (gm): 3041 Presentation: Vertex SIGNATURE SIGNATURE: ,[id number];,[id number];,[id number] SIGNATURE: ,[id number];,[id number] SIGNATURE: ,[id number] Signature: with User ID: [email or web address]
[2017-01-13] MEDS ORDERED: INSULIN REG, HUMAN 100 UNIT/ML 3 ML VIAL (PYX) SUBCUT SCH ×3 (08:00→16:00)
[2017-01-13] MEDS ORDERED: INSULIN NPH (ISOPHANE), HUMAN 100 UNIT/ML 3 ML SUBCUT SCH ×2 (08:00→16:00)
[2017-01-13 09:22] VITALS: BP 117/85
--- NOTE | 2017-01-13 14:40 | Admission Physical ---
Datetime Report Generated by CPN: 01/13/2017 14:39 CURRENT ADMISSION Chief Complaint: Uterine Contractions; Other Chief Complaint Other: Type I DM - poor control Chief Complaint Other: Insulin patterning Indication for Induction: Not Applicable Indication for Induction: Not Applicable Admit Impression- Other: Insulin patterning Admit Plan: Admit to Unit; Observation/Evaluation Admit Plan: Observation/Evaluation ALLERGIES Medication Allergies: No Medication Allergies: No Known Allergies (01/12/2017) Medication Allergies: No Known Allergies (12/06/2016) Medication Allergies: No Known Allergies (11/04/2016) Medication Allergies: No Known Allergies (07/26/2016) Medication Allergies: No Known Allergies (09/28/2015) Latex: No Latex Allergies OBSTETRICAL HISTORY EDC: 02/11/2017 00:00 : 3 Para: 2 Term: 1 : 1 SAB: 0 IAB: 0 Ectopic: 0 Livin Cesareans: 2 VBACs: 0 Multiple Births: 0 Gestational Diabetes: Yes Rh Sensitization: No Incompetent Cervix: No ROGELIO: No Infertility: No ART Treatment: No Uterine Anomaly: No IUGR: No Hx Previous C/S: Yes Macrosomia: No Hx Loss/Stillborn: No PIH: No Hx : No Placenta Previa/Abruption: No Depression/PP Depression: No PTL/PROM: Yes Post Hemorrhage: No Current Procedures: Ultrasound; NST Obstetrical History Comments: G1: primary 2010, 34 weeks G2: repeat c/s 2012 G3: current, polyhydramnios SEE RECORDS Alcohol: No Marijuana : No Cocaine: No Other Illicit Drugs: No Cigarettes: Never Smoker. 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 Heart Disease: No Hosp/Surgery: Yes Autoimmune Disorder: No Anesthetic Complications: No Kidney Disease: No Abnormal Pap Smear: No Neuro/Epilepsy: No Psychiatric Disorders: No Other Medical Diseases: No Hepatitis/Liver Disease: No Significant Family History: No Varicosities/Phlebitis: No Trauma/Violence : No Thyroid Dysfunction: No Medical History Comments: Type 1 Diabetes diagnosed age 1, tonsillectomy, previous c/s, anti E antibody, requesting BTL INFECTIOUS HISTORY Gonorrhea: No Genital Herpes: Yes Chlamydia: No Tuberculosis: No Syphilis: No Hepatitis: No HIV/AIDS Exposure: No Rash or Viral Illness: No HPV: No Infectious History Comments: Taking Acyclovir currently PHYSICAL EXAM General: Normal General: Normal HEENT: Normal HEENT: Normal Neurologic: Normal Neurologic: Normal Thyroid: Normal Thyroid: Normal Heart: Normal Heart: Normal Lungs: Normal Lungs: Normal Breast: Deferred Breast: Deferred Back: Normal Back: Normal Abdomen: Normal Abdomen: Normal Genitourinary Exam: Normal Genitourinary Exam: Normal Extremities: Normal Extremities: Normal DTRs: Normal DTRs: Normal Pelvic Type: Adequate Pelvic Type: Adequate Vital Signs: Reviewed; Within Normal Limits Vital Signs: Reviewed VAGINAL EXAM Dilatation: 0 Effacement: 0 Station: -3 MEMBRANES Membranes: Intact FETUS A Monitoring: External US FHR- Baseline: 160 FHR- Baseline: 140 Variability: Minimal - Undetectable to <=5bpm Accelerations: 10X10 Decelerations: Late FHR Category: Category II Estimated Weight (gm): 3041 Presentation: Vertex Admit Comment: 26yo at 35+5ega presents for ctx. 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 Pt placed on monitor and ctx q 2-4 minutes. Resolving with IVF. Pt noted to have late decels upon placement on the monitor and minimal variability. Accuchekc is 294. Dr. Clay is her PCM and will come to see pt. Pt reports eating [employer] today for lunch and thinks she took her Novolog at that time 10 units. Per pt report she is on Novocolg 06/06/14 (break/lunch/Dinner) and NPH 10 units/18units (morning/QHS). Will admit for monitoring and intrauterine recussitation. Dr. Papo napier help with stabilizing accuchecks. Admit Comment: ega too early for nst. Admit for patterning with insulin PLANS FOR LABOR AND DELIVERY Labor and Delivery: None Pain Management: Spinal Feeding Preference: Breast Benefit of Breast Feed Discussed: Yes Circumcision: Yes INFORMED CONSENT Informed Consent Obtained: Section Delivery; Risks, Benefits and Alternatives Discussed Signature: with User ID: [email or web address] Signature: with User ID: [email or web address] : with User ID: [email or web address]
--- NOTE | 2017-01-27 13:02 | DISCHARGE SUMMARY E ---
Discharge Summary NAME: AYDEN MARTIN : 1990 AGE: 26Y ADMITTED: 01/12/2017 DISCHARGED: 01/13/2017 ADMISSION DIAGNOSES: 1. . 2. Insulin-dependent diabetes with labile control. HISTORY: The patient was admitted, a 26-year-old female at 35 weeks with diabetes. She is being followed by Maternal Medicine for her diabetes and recently she has had some elevated blood sugars. She was admitted overnight and on the her blood sugars were high but on the her blood sugars are very normal. As stated previously, she is followed by [facility]. We will send her home on her admitting medications as today her blood sugars look very good on these medications. Perhaps her diet could be improved. We will continue with followup on Monday with Maternal Medicine as planned. She will be sent home on NPH insulin in the morning 10 units and 14 units at dinnertime and regular insulin 10 units at breakfast, 10 units at lunch, and 18 units at dinnertime. Her condition on discharge is good. She will follow up in the office on Monday as planned. She is to continue her other home medications as planned. DICTATING PHYSICIAN: NADINE ALTAMIRANO M.D. [id number] PHY#: [id number] ID: [id number] JOB#: [id number] ACCT: [id number] cc:NADINE ALTAMIRANO M.D. >
== END 2017-01-13 16:10 | disposition home or self-care (01) ==
LOC: LC 18:36 → LR 19:18 → 2S 01-13 06:55
PROVIDERS: ADMIT Student in an Organized Health Care Education/Training Program; ATTEND Student in an Organized Health Care Education/Training Program
PROC: 4A0HXCZ Measurement of Products of Conception, Cardiac Rate, External Approach (ICD-10-PCS; principal; 2017-01-12)
DX: O62.9 Abnormality of forces of labor, unspecified (principal); O24.013 Pre-existing type 1 diabetes mellitus, in pregnancy, third trimester; E10.65 Type 1 diabetes mellitus with hyperglycemia; O40.3XX0 Polyhydramnios, third trimester, not applicable or unspecified; O36.63X0 Maternal care for excessive fetal growth, third trimester, not applicable or unspecified; O36.1930 Maternal care for other isoimmunization, third trimester, not applicable or unspecified; O98.319 Other infections with a predominantly sexual mode of transmission complicating pregnancy, unspecified trimester; A60.00 Herpesviral infection of urogenital system, unspecified; Z79.4 Long term (current) use of insulin; Z79.899 Other long term (current) drug therapy; Z91.14 Patient's other noncompliance with medication regimen; Z3A.35 35 weeks gestation of pregnancy
CPT/HCPCS: 59025; 86900; 86901; 36415; 86870; 86850; 82962 ×2; 85025; 86592; 80053; 81001; 80307; 83036; G0378; G0379; J7030; J1815

== ENCOUNTER 2017-01-20 23:36 | Inpatient (IN) | payer BC, MEDICAID ==
[2017-01-20] MEDS ORDERED: RINGERS SOLUTION,LACTATED 1,000 ML IV ONE (23:59)
[2017-01-21] MEDS ORDERED: CEFAZOLIN 2 GM/D5W RTU 2 GM/50 ML RTUPB IV ONE (00:18)
[2017-01-21] MEDS ORDERED: CITRIC ACID/SODIUM CITRATE ORAL SOLN 15 ML UDCUP ONE (00:18)
[2017-01-21 00:25] LABS: ABSOLUTE EOSINOPHILS # (AUTO) 0.1 10^3/uL (0.0-0.6); ABSOLUTE LYMPHOCYTES (AUTO) 1.7 10^3/uL (0.5-4.7); ABSOLUTE MONOCYTES (AUTO) 0.6 10^3/uL (0.1-1.4); ABSOLUTE NEUT (AUTO) 2.9 10^3/uL (1.7-8.2); BASOPHILS % (AUTO) 0.7 % (0-2); EOSINOPHILS % (AUTO) 1.4 % (0-6); HEMATOCRIT 36.2 % (36.0-47.0); HEMOGLOBIN 11.8 g/dL (12.0-15.5); HGB HCT DIFFERENCE -0.8; LYMPHOCYTES % (AUTO) 31.6 % (13-45); MEAN CORPUSCULAR HEMOGLOBIN 27.1 pg (27.0-33.4); MEAN CORPUSCULAR HGB CONC 32.5 g/dL (32.0-36.0); MEAN CORPUSCULAR VOLUME 83 fl (80-97); MONOCYTES % (AUTO) 11.6 % (3-13); RED BLOOD COUNT 4.35 10^6/uL (3.72-5.28); RED CELL DISTRIBUTION WIDTH 14.5 % (11.5-14.0); SEGMENTED NEUTROPHILS % (AUTO) 54.7 % (42-78); WHITE BLOOD COUNT 5.4 10^3/uL (4.0-10.5)
[2017-01-21] MEDS ORDERED: INSULIN REG, HUMAN 100 UNIT/ML 3 ML VIAL (PYX) ONE (00:26)
[2017-01-21] MEDS ORDERED: CEFAZOLIN SODIUM 2 GM in DEXTROSE 5%-WATER 50 ML IV PRN (00:30)
[2017-01-21] MEDS ORDERED: ONDANSETRON HCL INJ/PF 4 MG/2 ML SDV ONE ×2 (00:37→01:03)
[2017-01-21] MEDS ORDERED: FENTANYL CITRATE INJ/PF 100 MCG/2 ML AMPUL ONE ×2 (00:38→01:46)
[2017-01-21] MEDS ORDERED: MIDAZOLAM 2 MG/2 ML INJ ONE (00:38)
[2017-01-21] MEDS ORDERED: OXYTOCIN 10 UNIT/ML VIAL ONE (00:38)
[2017-01-21] MEDS ORDERED: CEFAZOLIN INJ 1 GM VIAL IV PRN ×2 (01:15→01:30)
[2017-01-21] MEDS ORDERED: SIMETHICONE 80 MG TAB.CHEW PO PRN (02:51)
[2017-01-21] MEDS ORDERED: HYDROMORPHONE HCL INJ/PF 2 MG/ML AMPULE IV PRN (02:51)
[2017-01-21] MEDS ORDERED: DIPH/PERTUSS(ACELL)/TETANUS VAC/PF 0.5 ML SYR (>=10YO) IM PRN (02:51)
[2017-01-21] MEDS ORDERED: OXYCODONE-ACETAMINOPHEN 5-325 MG TABLET PO PRN (02:51)
[2017-01-21] MEDS ORDERED: MEASLES,MUMPS&RUBELLA VACC/PF 0.5 ML VIAL SUBCUT PRN (02:51)
[2017-01-21] MEDS ORDERED: OXYTOCIN/NORMAL SALINE 20 UNIT/1,000 ML RTUINJ IV PRN (02:51)
[2017-01-21] MEDS ORDERED: PROMETHAZINE HCL INJ 25 MG/1 ML VIAL IV PRN (02:51)
[2017-01-21] MEDS ORDERED: ACETAMINOPHEN 325 MG TABLET PO PRN (02:51)
[2017-01-21] MEDS ORDERED: MISOPROSTOL 0.2 MG TABLET PR ONE (02:55)
[2017-01-21] MEDS ORDERED: MISOPROSTOL 0.2 MG TABLET ONE (02:59)
[2017-01-21] MEDS ORDERED: HYDROMORPHONE HCL INJ/PF 2 MG/ML AMPULE ONE (03:05)
[2017-01-21] MEDS ORDERED: OXYTOCIN/NORMAL SALINE 20 UNIT/1,000 ML RTUINJ ONE (03:11)
--- NOTE | 2017-01-21 03:58 | Admission Physical ---
Datetime Report Generated by CPN: 01/21/2017 03:57 CURRENT ADMISSION Chief Complaint: Suspected Ruptured Membranes Chief Complaint: Uterine Contractions; Other Chief Complaint Other: Type I DM - poor control Chief Complaint Other: Insulin patterning Indication for Induction: Not Applicable Indication for Induction: Not Applicable Indication for Induction: Not Applicable Admit Impression- Other: Insulin patterning Admit Plan: Admit to Unit; Initiate Section Protocol Admit Plan: Admit to Unit; Observation/Evaluation Admit Plan: Observation/Evaluation ALLERGIES Medication Allergies: No Medication Allergies: No Known Allergies (01/20/2017) Medication Allergies: No Known Allergies (01/12/2017) Medication Allergies: No Known Allergies (12/06/2016) Medication Allergies: No Known Allergies (11/04/2016) Medication Allergies: No Known Allergies (07/26/2016) Medication Allergies: No Known Allergies (09/28/2015) Latex: No Latex Allergies OBSTETRICAL HISTORY EDC: 02/11/2017 00:00 : 3 Para: 2 Term: 1 : 1 SAB: 0 IAB: 0 Ectopic: 0 Livin Cesareans: 2 VBACs: 0 Multiple Births: 0 Gestational Diabetes: Yes Rh Sensitization: No Incompetent Cervix: No ROGELIO: No Infertility: No ART Treatment: No Uterine Anomaly: No IUGR: No Hx Previous C/S: Yes Macrosomia: No Hx Loss/Stillborn: No PIH: No Hx : No Placenta Previa/Abruption: No Depression/PP Depression: No PTL/PROM: Yes Post Hemorrhage: No Current Procedures: Ultrasound; NST Obstetrical History Comments: G1: primary 2010, 34 weeks G2: repeat c/s 2012 G3: current, polyhydramnios SEE RECORDS Alcohol: No Marijuana : No Cocaine: No Other Illicit Drugs: No Cigarettes: Never Smoker. 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 Heart Disease: No Hosp/Surgery: Yes Autoimmune Disorder: No Anesthetic Complications: No Kidney Disease: No Abnormal Pap Smear: No Neuro/Epilepsy: No Psychiatric Disorders: No Other Medical Diseases: No Hepatitis/Liver Disease: No Significant Family History: No Varicosities/Phlebitis: No Trauma/Violence : No Thyroid Dysfunction: No Medical History Comments: Type 1 Diabetes diagnosed age 1, tonsillectomy, previous c/s, anti E antibody, requesting BTL INFECTIOUS HISTORY Gonorrhea: No Genital Herpes: Yes Chlamydia: No Tuberculosis: No Syphilis: No Hepatitis: No HIV/AIDS Exposure: No Rash or Viral Illness: No HPV: No Infectious History Comments: Taking Acylovir yesterday PHYSICAL EXAM General: Normal General: Normal General: Normal HEENT: Normal HEENT: Normal HEENT: Normal Neurologic: Normal Neurologic: Normal Neurologic: Normal Thyroid: Deferred Thyroid: Normal Thyroid: Normal Heart: Normal Heart: Normal Heart: Normal Lungs: Normal Lungs: Normal Lungs: Normal Breast: Deferred Breast: Deferred Breast: Deferred Back: Normal Back: Normal Back: Normal Abdomen: Normal Abdomen: Normal Abdomen: Normal Genitourinary Exam: Normal Genitourinary Exam: Normal Genitourinary Exam: Normal Extremities: Normal Extremities: Normal Extremities: Normal DTRs: Normal DTRs: Normal DTRs: Normal Pelvic Type: Adequate Pelvic Type: Adequate Pelvic Type: Adequate Vital Signs: Reviewed; Within Normal Limits Vital Signs: Reviewed; Within Normal Limits Vital Signs: Reviewed VAGINAL EXAM Dilatation: 0 Effacement: 0 Station: -3 MEMBRANES Membranes: Ruptured Membranes: Intact FETUS A EGA: 36.6 EGA: 35.5 Monitoring: External US Monitoring: External US FHR- Baseline: 140 FHR- Baseline: 160 FHR- Baseline: 140 Variability: Moderate 6-25bpm Variability: Minimal - Undetectable to <=5bpm Accelerations: 15X15 Accelerations: 10X10 Decelerations: None Decelerations: Late FHR Category: Category I FHR Category: Category II Estimated Weight (gm): 3041 Presentation: Vertex Admit Comment: Will proceed with Repeat C/S with BTL Admit Comment: 26yo at 35+5ega presents for ctx. 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 Pt placed on monitor and ctx q 2-4 minutes. Resolving with IVF. Pt noted to have late decels upon placement on the monitor and minimal variability. Accuchekc is 294. Dr. Clay is her PCM and will come to see pt. Pt reports eating [employer] today for lunch and thinks she took her Novolog at that time 10 units. Per pt report she is on Novocolg 06/06/14 (break/lunch/Dinner) and NPH 10 units/18units (morning/QHS). Will admit for monitoring and intrauterine recussitation. Dr. Papo napier help with stabilizing accuchecks. Admit Comment: ega too early for nst. Admit for patterning with insulin PLANS FOR LABOR AND DELIVERY Labor and Delivery: None Pain Management: Spinal Feeding Preference: Breast Benefit of Breast Feed Discussed: Yes Circumcision: Yes INFORMED CONSENT Informed Consent Obtained: Section Delivery; Risks, Benefits and Alternatives Discussed Signature: with User ID: [email or web address] Signature: with User ID: [email or web address] Signature: with User ID: Miguel : with User ID: [email or web address] : with User ID: Miguel
[2017-01-21 04:23] LABS: APPEARANCE,URINE CLEAR; BILIRUBIN,URINE NEGATIVE (NEGATIVE); GLUCOSE, URINE >=500 mg/dL (NEGATIVE); KETONES,URINE 80 mg/dL (NEGATIVE); LEUKOCYTE ESTERASE,URINE NEGATIVE (NEGATIVE); NITRITE,URINE NEGATIVE (NEGATIVE); PROTEIN,URINE NEGATIVE (NEGATIVE); URINE SPECIFIC GRAVITY 1.014; UROBILINOGEN,URINE NEGATIVE mg/dL (<2.0)
[2017-01-21 04:39] LABS: URINE BARBITURATES SCREEN NEGATIVE; URINE METHADONE SCREEN NEGATIVE; URINE OPIATES LOW NEGATIVE; URINE PHENCYCLIDINE SCREEN NEGATIVE
--- NOTE | 2017-01-21 05:19 | Delivery Summary ---
Del Sum A-C Datetime Report Generated by CPN: 01/21/2017 05:18 DELIVERY PERSONNEL DELIVERY PERSONNEL: [phone];[id number] Delivery Doctor:: Lele Browning DO Labor and Delivery Nurse:: Ginny Palm RN Superintendent [employer]:: Ginny Palm RN Nursery Nurse:: Socorro Dominique RN Nursery Nurse:: Sumi Quiroz RN Order To Delivery Supervisor/DATABASE DESIGNER: [facility] Order To Delivery Supervisor/DATABASE DESIGNER: [facility] Additional Personnel: : Geeta Durand CNA MATERNAL INFORMATION Delivery Anesthesia: Spinal Medications After Delivery: Pitocin Drip 20 Units/1000ml NSS Estimated Blood Loss (ml): 600 Maternal Complications: Premature Rupture of Membranes LABOR SUMMARY EDC: 02/11/2017 00:00 No. Babies in Womb: 1 LABOR INFORMATION Reason for Induction: Not Applicable Group B Beta Strep: unknown (Annotations: Data stored by [facility] on behalf of user) Steroids Given: None Reason Steroids Not Administered: Not Applicable MEMBRANES Membranes Rupture Method: Spontaneous Rupture of Membranes: 01/20/2017 22:30 Length of Rupture (hr): 2.50 Amniotic Fluid Color: Clear Amniotic Fluid Amount: Copious Amniotic Fluid Odor: Normal STAGES OF LABOR Stage 3 hr: 0 Stage 3 min: 0 CSECTION DELIVERY Primary Indication: Nonreassuring Status Other Primary Indication: Repeat Section CSection Urgency: Non-Scheduled CSection Incidence: Repeat Labor: Labor Elective: N/A CSection Incision: Lower Uterine Transverse BABY A INFORMATION Delivery Date/Time: 01/21/2017 01:00 Method of Delivery: Born in Route : No : N/A Forceps: N/A Vacuum Extraction: N/A Shoulder Dystocia : No PRESENTATION/POSITION BABY A Presentation: Cephalic Cephalic Presentation: Vertex Breech Presentation: N/A PLACENTA INFORMATION BABY A Placenta Delivery Time : 01/21/2017 01:00 Placenta Method of Delivery: Manual Removal Placenta Status: Delivered SCORES BABY A Heart Rate 1 min: >100 bpm Resp Effort 1 min: Good Cry Reflex Irritability 1 min: Cough or Sneeze or Pulls Away Muscle Tone 1 min: Active Motion Color 1 min: Blue/Pale SCORE 1 MIN: 8 Heart Rate 5 min: >100 bpm Resp Effort 5 min: Good Cry Reflex Irritability 5 min: Cough or Sneeze or Pulls Away Muscle Tone 5 min: Some Flexion of Extremities Color 5 min: Body [place], Extremities Blue SCORE 5 MIN: 8 INFORMATION BABY A Gestational Age at Delivery: 37.0 Gestational Status: Early Term- 37- 38.6 Weeks Infant Outcome : Liveborn Infant Condition : Stable Sex: Male IDENTIFICATION BABY A Verification Date/Time: 01/21/2017 01:26 ID Band Number: [id number] Mother's Name Verified: Yes Infant RN Verifying : Roula LeónCodyTHOMAS russo Additional Verifying Personnel: Kim Durand CNA WEIGHT/LENGTH BABY A Infant Birthweight (gm): 3870 Weight (lb): 8 Infant Weight (oz): 9 Infant Length (in): 20.00 Length (cm): 50.80 CORD INFORMATION BABY A No. Cord Vessels: 3 Nuchal Cord : N/A Cord Blood Taken: Yes-For Eval (Mom's Blood Type - or O+) Suction: Mouth; Nose ASSESSMENT BABY A Complications: Multiple Late Decels Skin to Skin: No Infant Care By: L Trip, RN Transferred To: NICU
--- NOTE | 2017-01-21 08:31 | PDOC PROGRESS REPORT ---
Subjective-OB Subjective: Post Delivery Day: 26 year old. Denies any needs at this time Pt resting in bed, no c/o, drinking, plans to breast feed, pain under control Physical Exam (OB) Vital Signs: Temp Pulse Resp BP Pulse Ox 98.1 F 107 H 16 111/73 95 01/21/17 06:51 01/21/17 06:51 01/21/17 06:51 01/21/17 06:51 01/21/17 06:51 Intake & Output 01/20/17 01/21/17 01/22/17 06:59 06:59 06:59 Output Total 300 Balance -300 Weight 79 kg - Lochia Lochia Amount: Moderate 25-50 ml Lochia Color: Rubra/Red - uterus very firm, high Objective-Diagnostic Laboratory: 01/21/17 00:06 01/21/17 01/21/17 01/21/17 00:06 00:06 03:17 WBC 5.4 RBC 4.35 Hgb 11.8 L Hct 36.2 MCV 83 MCH 27.1 MCHC 32.5 RDW 14.5 H Plt Count 190 Seg Neutrophils % 54.7 Lymphocytes % 31.6 Monocytes % 11.6 Eosinophils % 1.4 Basophils % 0.7 Absolute Neutrophils 2.9 Absolute Lymphocytes 1.7 Absolute Monocytes 0.6 Absolute Eosinophils 0.1 Absolute Basophils 0.0 Urine Color YELLOW Urine Appearance CLEAR Urine pH 6.0 Ur Specific Exmore 1.014 Urine Protein NEGATIVE Urine Glucose (UA) >=500 H Urine Ketones 80 H Urine Blood NEGATIVE Urine Nitrite NEGATIVE Ur Leukocyte Esterase NEGATIVE Blood Type O POSITIVE Antibody Screen POSITIVE Assessment and Plan(PN) - Assessment and Plan (1) Delivery by section of full-term infant Is this a current diagnosis for this admission?: Yes - Time Spent with Patient Time with patient: Less than 15 minutes Medications reviewed and adjusted accordingly: Yes - Disposition Anticipated Discharge: Home Within: within 48 hours
[2017-01-21] MEDS ORDERED: DEXTROSE 40% GEL 15 GM TUBE PO PRN (08:51)
[2017-01-21] MEDS ORDERED: DEXTROSE 40% GEL 15 GM TUBE X 2 PO PRN (08:51)
[2017-01-21] MEDS ORDERED: DEXTROSE 50%-WATER SYRINGE 25 GM/50 ML DOSE IV PRN (08:51)
[2017-01-21] MEDS ORDERED: GLUCAGON,HUMAN RECOMB 1 MG INJ IM PRN (08:51)
[2017-01-21] MEDS ORDERED: DEXTROSE 50%-WATER SYRINGE 12.5 GM/25 ML DOSE IV PRN (08:51)
[2017-01-21 08:57] LABS: HEMATOCRIT 30.5 % (36.0-47.0); HGB HCT DIFFERENCE -1.4; MEAN CORPUSCULAR HEMOGLOBIN 26.4 pg (27.0-33.4); MEAN CORPUSCULAR HGB CONC 31.9 g/dL (32.0-36.0); MEAN CORPUSCULAR VOLUME 83 fl (80-97); RED CELL DISTRIBUTION WIDTH 14.6 % (11.5-14.0); WHITE BLOOD COUNT 6.2 10^3/uL (4.0-10.5)
[2017-01-21 09:01] LABS: HEMOGLOBIN 9.7 g/dL (12.0-15.5)
[2017-01-21] MEDS: PRENATAL VITAMIN W-O CA NO5/FE FUMARATE/FA CAPSULE PO SCH (09:56)
[2017-01-21] MEDS: OXYCODONE-ACETAMINOPHEN 5-325 MG TABLET PO PRN ×4 (09:56→21:52)
[2017-01-21] MEDS: DOCUSATE SODIUM 100 MG CAPSULE PO SCH ×2 (09:56→17:10)
[2017-01-21] MEDS: INSULIN LISPRO 100 UNIT/ML 3 ML VIAL SUBCUT PRN ×2 (12:04→17:11)
[2017-01-21] MEDS: IBUPROFEN 800 MG TABLET PO PRN (14:07)
[2017-01-21] MEDS ORDERED: AMPICILLIN SOD/SULBACTAM 3 GM VIAL IV SCH (15:30)
[2017-01-21] MEDS ORDERED: AMPICILLIN SODIUM/SULBACTAM NA 3 GM in NORMAL SALINE 100 ML IV ONE (16:30)
[2017-01-21] MEDS: INSULIN NPH (ISOPHANE), HUMAN 100 UNIT/ML 3 ML SUBCUT SCH (17:11)
[2017-01-21] MEDS: AMPICILLIN SODIUM/SULBACTAM NA 3 GM in NORMAL SALINE 100 ML IV SCH (21:52)
[2017-01-22] MEDS: OXYCODONE-ACETAMINOPHEN 5-325 MG TABLET PO PRN ×3 (02:38→21:29)
[2017-01-22] MEDS: AMPICILLIN SODIUM/SULBACTAM NA 3 GM in NORMAL SALINE 100 ML IV SCH (06:00)
[2017-01-22] MEDS: IBUPROFEN 800 MG TABLET PO PRN ×2 (06:00→12:30)
[2017-01-22 06:04] LABS: HEMATOCRIT 29.6 % (36.0-47.0); HEMOGLOBIN 9.7 g/dL (12.0-15.5); HGB HCT DIFFERENCE -0.5; MEAN CORPUSCULAR HEMOGLOBIN 26.8 pg (27.0-33.4); MEAN CORPUSCULAR HGB CONC 32.6 g/dL (32.0-36.0); MEAN CORPUSCULAR VOLUME 82 fl (80-97); RED BLOOD COUNT 3.61 10^6/uL (3.72-5.28); RED CELL DISTRIBUTION WIDTH 14.6 % (11.5-14.0); WHITE BLOOD COUNT 5.5 10^3/uL (4.0-10.5)
--- NOTE | 2017-01-22 07:54 | PDOC PROGRESS REPORT ---
Subjective-OB Subjective: Post Delivery Day: 26 year old. Denies any needs at this time Doing better today, eating, passing gas, bleeding decreased, voiding, ambulating Physical Exam (OB) Vital Signs: Temp Pulse Resp BP Pulse Ox 97.6 F 91 18 115/74 100 01/22/17 04:21 01/22/17 04:21 01/22/17 04:21 01/22/17 04:21 01/22/17 04:21 Intake & Output 01/21/17 01/22/17 01/23/17 06:59 06:59 06:59 Intake Total 2640 Output Total 300 1510 Balance -300 1130 Weight 79 kg - PIH/Pre-Eclampsia Clonus: Negative Headache: Absent Epigastric Pain: No Visual Changes: No - Dressing Removed: Yes Incision: Dressing - Lochia Lochia Amount: Small 10-25 ml Lochia Color: Rubra/Red - Abdomen Description: Soft, Round Hernia Present: No Fundal Description: Firm Describe if Not Midline: Fundus rock hard & tilted to the right. Kalina Rashid CNM & Dr. Schreiber notified Fundal Height: u/u - u/2 Objective-Diagnostic Laboratory: 01/22/17 05:46 01/21/17 01/22/17 08:40 05:46 WBC 6.2 5.5 RBC 3.70 L 3.61 L Hgb 9.7 L D 9.7 L Hct 30.5 L 29.6 L MCV 83 82 MCH 26.4 L 26.8 L MCHC 31.9 L 32.6 RDW 14.6 H 14.6 H Plt Count 162 168 Assessment and Plan(PN) - Assessment and Plan (1) Delivery by section of full-term Is this a current diagnosis for this admission?: Yes - Time Spent with Patient Time with patient: Less than 15 minutes Medications reviewed and adjusted accordingly: Yes - Disposition Anticipated Discharge: Home Within: within 24 hours
[2017-01-22] MEDS: INSULIN NPH (ISOPHANE), HUMAN 100 UNIT/ML 3 ML SUBCUT SCH ×2 (08:09→18:10)
[2017-01-22] MEDS: INSULIN LISPRO 100 UNIT/ML 3 ML VIAL SUBCUT SCH ×3 (08:09→16:26)
[2017-01-22] MEDS: DOCUSATE SODIUM 100 MG CAPSULE PO SCH ×2 (09:03→17:02)
[2017-01-22] MEDS: PRENATAL VITAMIN W-O CA NO5/FE FUMARATE/FA CAPSULE PO SCH (09:03)
[2017-01-22] MEDS: INSULIN LISPRO 100 UNIT/ML 3 ML VIAL SUBCUT PRN (21:40)
[2017-01-23] MEDS: OXYCODONE-ACETAMINOPHEN 5-325 MG TABLET PO PRN ×3 (05:06→21:24)
[2017-01-23] MEDS: INSULIN LISPRO 100 UNIT/ML 3 ML VIAL SUBCUT SCH ×3 (07:45→17:15)
[2017-01-23] MEDS: INSULIN NPH (ISOPHANE), HUMAN 100 UNIT/ML 3 ML SUBCUT SCH ×2 (07:46→17:18)
[2017-01-23] MEDS: PRENATAL VITAMIN W-O CA NO5/FE FUMARATE/FA CAPSULE PO SCH (09:24)
[2017-01-23] MEDS: DOCUSATE SODIUM 100 MG CAPSULE PO SCH ×2 (09:24→17:28)
--- NOTE | 2017-01-23 09:54 | PDOC PROGRESS REPORT ---
Subjective-OB Subjective: Post Delivery Day: 26 year old. Denies any needs at this time Physical Exam (OB) Vital Signs: Temp Pulse Resp BP Pulse Ox 98.4 F 98 20 125/83 100 01/23/17 07:25 01/23/17 07:25 01/23/17 07:25 01/23/17 07:25 01/23/17 07:25 Intake & Output 01/22/17 01/23/17 01/24/17 06:59 06:59 06:59 Intake Total 2640 1960 Output Total 1510 Balance 1130 1959 - PIH/Pre-Eclampsia Clonus: Negative Headache: Absent Epigastric Pain: No Visual Changes: No - Dressing Removed: No Incision: Dressing, Well Approximated - Lochia Lochia Amount: Scant < 10 ml Lochia Color: Rubra/Red - Abdomen Description: Soft, Round Hernia Present: No Bowel Sounds: Normoactive Flatus Presence: Present Stool: No Fundal Description: Firm, Midline Describe if Not Midline: Fundus rock hard & tilted to the right. Kalina Rashid CNM & Dr. Schreiber notified Fundal Height: u/u - u/2 Objective-Diagnostic Laboratory: 01/22/17 05:46 Assessment and Plan(PN) - Time Spent with Patient Medications reviewed and adjusted accordingly: Yes - Disposition Anticipated Discharge: Home
[2017-01-23] MEDS: IBUPROFEN 800 MG TABLET PO PRN ×2 (11:08→17:32)
[2017-01-24] MEDS: IBUPROFEN 800 MG TABLET PO PRN (04:04)
[2017-01-24] MEDS: OXYCODONE-ACETAMINOPHEN 5-325 MG TABLET PO PRN (08:16)
--- NOTE | 2017-01-24 08:43 | PDOC DISCHARGE SUMMARY ---
Final Diagnosis Discharge Date: 01/24/17 - Final Diagnosis (1) Delivery by section of full-term infant Is this a current diagnosis for this admission?: Yes (2) Type 1 diabetes Is this a current diagnosis for this admission?: Yes Discharge Data - Discharge Medication Home Medications: Insulin Aspart Protam & Aspart [Novolog Mix 70-30 Flexpen Syrn] 100 unit SQ Q3 01/21/17 Docusate Sodium [Colace 100 mg Capsule] 100 mg PO BID #60 capsule 01/24/17 Ferrous Sulfate [Feosol 325 mg Tablet] 325 mg PO MEALS #90 tab 01/24/17 Ibuprofen [Motrin 800 mg Tablet] 800 mg PO Q6HP PRN #60 tablet 01/24/17 Insulin Lispro [Humalog Insulin (Lispro) 100 unit/mL] 0 - 12 unit SUBCUT ACHSP PRN #0 unit 01/24/17 Insulin Lispro [Humalog Insulin (Lispro) 100 unit/mL] 10 unit SUBCUT AC #0 unit 01/24/17 NPH, Human Insulin Isophane [Humulin N (NPH) Insulin 100 unit/mL] 10 unit SUBCUT QAM #0 unit 01/24/17 NPH, Human Insulin Isophane [Humulin N (NPH) Insulin 100 unit/mL] 22 unit SUBCUT QPM #0 unit 01/24/17 Oxycodone HCl/Acetaminophen [Percocet 5-325 mg Tablet] 2 tab PO Q4HP PRN #30 tablet 01/24/17 Gestational Age: 37.0 Reason(s) for Admission: PROM, Rh incompatibility Admission Note: anti E Procedures: NST Intrapartum Procedure(s): : Low Cervical, Transverse - Data Baby 1 Male at 1 minute: 8 at 5 minutes: 8 Weight: 3870 kg Home with Mother: No Complications: Yes - mother type 1 iddm poor control infant with respiratory issues - Diagnosis Test Laboratory: Temp Pulse Resp BP Pulse Ox 97.8 F 101 H 16 114/83 100 01/24/17 08:05 01/24/17 08:05 01/24/17 08:05 01/24/17 08:05 01/24/17 08:05 01/21/17 01/21/17 01/21/17 00:06 03:17 08:40 RBC 4.35 3.70 L Hgb 11.8 L 9.7 L D Hct 36.2 30.5 L Urine Opiates Screen NEGATIVE 01/22/17 05:46 RBC 3.61 L Hgb 9.7 L Hct 29.6 L Urine Opiates Screen - Discharge information/Instructions Discharge Activity: Activity As Tolerated, No Driving, No Lifting Over 10 Pounds , Pelvic Rest, No tub bath Discharge Diet: Diabetic Disposition: HOME, SELF-CARE Follow up with: [facility] in: 1, Weeks - follow up with primary care as scheduled
[2017-01-24 09:07] VITALS: BP 107/74
[2017-01-24] MEDS: INSULIN LISPRO 100 UNIT/ML 3 ML VIAL SUBCUT SCH (09:28)
[2017-01-24] MEDS: INSULIN NPH (ISOPHANE), HUMAN 100 UNIT/ML 3 ML SUBCUT SCH (09:28)
[2017-01-24] MEDS: DOCUSATE SODIUM 100 MG CAPSULE PO SCH (09:58)
[2017-01-24] MEDS: PRENATAL VITAMIN W-O CA NO5/FE FUMARATE/FA CAPSULE PO SCH (09:58)
--- NOTE | 2017-03-14 10:31 | OPERATIVE REPORT E ---
Operative Report NAME: AYDEN MARTIN : 1990 AGE: 26Y DATE OF SURGERY: ROOM: 218 PREOPERATIVE DIAGNOSES: 1. A 36-week 6-day intrauterine . 2. Spontaneous rupture of membranes. 3. History of section x2 for repeat. POSTOPERATIVE DIAGNOSES: 1. A 36-week 6-day intrauterine . 2. Spontaneous rupture of membranes. 3. History of section x2 for repeat. OPERATION: Repeat low transverse section. SURGEON: Lele Browning D.O. MACHINE MAINTENANCE REPAIRER: None. ANESTHESIA: Spinal. COMPLICATIONS: None. PATHOLOGY: Placenta. ESTIMATED BLOOD LOSS: 600 mL. FINDINGS: 1. Viable male at 1 A.M. on 01/21/2017, Apgars 8 at 1, 8 at 5. 2. Extensive adhesions of the anterior abdominal wall to the fascia and the omentum to the point where the uterus was unable to be exteriorized during the case. PROCEDURE: The patient was taken to the operating room where spinal anesthesia was administered. Once this was done she was placed in the dorsal supine position upon the operating room table with a leftward tilt. She was then prepped and draped in a normal fashion. A scalpel was then used to make a Pfannenstiel skin incision. The skin incision was carried down through the subcutaneous tissue to the layer of the fascia. The fascia was incised in the midline and was found to be densely adhered to the uterus. A fascial incision was carefully made, and the omentum was slowly dissected off of the fascia. A window was then created in the fascia which was fused to the anterior wall of the uterus to a point where a low transverse hysterotomy incision could be made. This incision was then made. The infant was found to be cephalic position and delivered through this incision without difficulty and atraumatically. The nose and mouth were suctioned. The cord was clamped and cut. The was handed off to the waiting nurses. Cord blood was obtained. The placenta was then manually removed from the uterus. The uterus could not be exteriorized secondary to the extreme adhesive disease that the patient has, so the uterus was then repaired in situ with 2 layers of 1-0 Vicryl in a running locking fashion. Following closure of the second layer, excellent hemostasis was noted. The rectus muscles were then reapproximated using 1-0 Vicryl interrupted sutures. The fascia was then closed using 1-0 Vicryl in a running nonlocking fashion. The subcutaneous space was then made hemostatic using Bovie cautery. The skin was then closed with absorbable karrie covered with OpSite and then with a pressure dressing. At this point in time the procedure was terminated. All sponge, lap, and needle counts were correct x2. Patient tolerated the procedure well. Patient was taken to the recovery room in stable condition. DICTATING PHYSICIAN: Lele Browning DO [id number] PHY#: [id number] ID: [id number] JOB#: [id number] ACCT: [id number] cc:Lele Browning D.O. >
== END 2017-01-24 12:00 | disposition home or self-care (01) | DRG 765 ==
LOC: LC 23:36 → LR 01-21 00:01 → 2S 01-21 03:56
PROVIDERS: ADMIT Obstetrics & Gynecology; ATTEND Obstetrics & Gynecology
PROC: 10D00Z1 Extraction of Products of Conception, Low, Open Approach (ICD-10-PCS; principal; 2017-01-21)
PROC: 4A1HXCZ Monitoring of Products of Conception, Cardiac Rate, External Approach (ICD-10-PCS; 2017-01-21)
PROC: 3E0234Z Introduction of Serum, Toxoid and Vaccine into Muscle, Percutaneous Approach (ICD-10-PCS; 2017-01-24)
DX: O34.211 Maternal care for low transverse scar from previous cesarean delivery (principal); O24.02 Pre-existing type 1 diabetes mellitus, in childbirth; O98.32 Other infections with a predominantly sexual mode of transmission complicating childbirth; O36.0930 Maternal care for other rhesus isoimmunization, third trimester, not applicable or unspecified; O76 Abnormality in fetal heart rate and rhythm complicating labor and delivery; E10.9 Type 1 diabetes mellitus without complications; O40.3XX0 Polyhydramnios, third trimester, not applicable or unspecified; O99.89 Other specified diseases and conditions complicating pregnancy, childbirth and the puerperium; N73.6 Female pelvic peritoneal adhesions (postinfective); A60.00 Herpesviral infection of urogenital system, unspecified; O36.63X0 Maternal care for excessive fetal growth, third trimester, not applicable or unspecified; O42.02 Full-term premature rupture of membranes, onset of labor within 24 hours of rupture; Z23 Encounter for immunization; Z79.4 Long term (current) use of insulin; Z91.19 Patient's noncompliance with other medical treatment and regimen; Z3A.37 37 weeks gestation of pregnancy; Z37.0 Single live birth; Z79.899 Other long term (current) drug therapy; Z30.2 Encounter for sterilization
CPT/HCPCS: 1961; 36415; 80307; 81005; 82962; 85025; 85027; 86592; 86850; 86870; 86900; 86901; 88307; 90715; 94799; J0295; J0690; J1170; J1815; J2250; J2405; J2590; J3010; J3490

== ENCOUNTER 2017-01-27 17:06 | Emergency (ER) | payer BC, MEDICAID ==
[2017-01-27 17:10] VITALS: BP 112/74
--- NOTE | 2017-01-27 18:08 | ER Document Report ---
ED Medical Screen (RME) - General Chief Complaint: Headache Stated Complaint: HEADACHES Time Seen by Provider: 01/27/17 17:52 Mode of Arrival: Ambulatory Information source: Patient TRAVEL OUTSIDE OF THE [place] IN LAST 30 DAYS: No - HPI Onset: Other - 5 DAYS Onset/Duration: Gradual, Intermittent, Waxing and waning Context: 6 DAYS POST-, FEEDING VIA BREAST AND BOTTLE. Quality of pain: Achy, Dull Severity: Mild Associated Symptoms: Nausea. denies: Chills, Fever, Vomiting Exacerbated by: Denies Relieved by: Denies Similar symptoms previously: Yes - MILDER & LESS PROLONGED Recently seen / treated by doctor: Yes - OB, DELIVERED 12/22 - Related Data Smoking: Non-smoker Frequency of alcohol use: None Drug Abuse: None Allergies/Adverse Reactions: No Known Allergies Allergy (Verified 01/27/17 17:08) Past Medical History - General Information source: Patient - Social History Cigarette use (# per day): No Chew tobacco use (# tins/day): No Frequency of alcohol use: None Drug Abuse: None Lives with: Family Family history: None - Past Medical History Cardiac Medical History: Reports: None Denies: Hx Hypertension, Hx Heart Murmur Pulmonary Medical History: Reports: None Denies: Hx Tuberculosis Neurological Medical History: Reports: None. Denies: Hx Seizures Endocrine Medical History: Reports: Hx Diabetes Mellitus Type 1, Hx Diabetes Mellitus Type 2. Denies: Hx Graves' Disease, Hx Hyperthyroidism, Hx Hypothyroidism Renal/ Medical History: Denies: Hx Peritoneal Dialysis Malignancy Medical History: Reports: None GI Medical History: Reports: None Psychiatric Medical History: Reports: None Past Surgical History: Reports: Hx Section - x2, Hx Tonsillectomy - 2005. Denies: Hx Appendectomy, Hx Bowel Surgery, Hx Cholecystectomy, Hx Coronary Artery Bypass Graft, Hx Gastric Bypass Surgery, Hx Herniorrhaphy, Hx Hysterectomy, Hx Mastectomy, Hx Pacemaker, Hx Tubal Ligation - Immunizations Hx Diphtheria, Pertussis, Tetanus Vaccination: Yes Review of Systems - Review of Systems Constitutional: No symptoms reported EENT: No symptoms reported. denies: Eye pain Cardiovascular: No symptoms reported Gastrointestinal: No symptoms reported Genitourinary: No symptoms reported Female Genitourinary: See HPI Musculoskeletal: No symptoms reported Skin: No symptoms reported Neurological/Psychological: See HPI Physical Exam - Vital signs Vitals: Temp Pulse Resp BP Pulse Ox 97.7 F 109 H 15 112/74 98 01/27/17 17:08 01/27/17 17:08 01/27/17 17:08 01/27/17 17:08 01/27/17 17:08 Interpretation: Tachycardic. No: Hypertensive, Tachypneic, Febrile - General General appearance: Appears well, Alert In distress: None - HEENT Head: Normocephalic Eyes: Normal Conjunctiva: Normal Pupils: PERRL Fundascopic: Normal Mouth/Lips: Normal Mucous membranes: Normal Neck: Normal, Supple, Other - MILD MUSCULAR TENSION & TENDERNESS. - Respiratory Respiratory status: No respiratory distress - Cardiovascular Rhythm: Regular, Tachycardia - Abdominal Inspection: Normal Distension: No distension - Extremities General upper extremity: Normal inspection General lower extremity: Normal inspection. No: Edema - Neurological Neuro grossly intact: Yes Cognition: Normal Orientation: AAOx4 - Psychological Associated symptoms: Normal affect, Normal mood - Skin Skin Temperature: Warm Skin Moisture: Dry Skin Color: Normal Skin Turgor: Elastic Course - Vital Signs Vital signs: Temp Pulse Resp BP Pulse Ox 97.7 F 109 H 15 112/74 98 01/27/17 17:08 01/27/17 17:08 01/27/17 17:08 01/27/17 17:08 01/27/17 17:08 Doctor's Discharge - Discharge Clinical Impression: Tension type headache Qualifiers: Headache chronicity pattern: unspecified pattern Intractability: not intractable Qualified Code(s): G44.209 - Tension-type headache, unspecified, not intractable Condition: Stable Disposition: HOME, SELF-CARE Instructions: Headache ([facility]), Oral Narcotic Medication ([facility]), Muscle Relaxers ( [facility]) Additional Instructions: REST, DRINK PLENTY OF FLUIDS. TAKE DIAZEPAM DIRECTED, NEEDED FOR MUSCLE RELAXATION. YOU MAY TAKE VERDROCET FOR PAIN IF NEEDED. DO NOT BREAST FEED YOUR WITHIN 12 HOURS AFTER TAKING EITHER NORCO OR DIAZEPAM. FOLLOW UP WITH YOUR OB. DOCTOR SCHEDULED. RETURN TO E.R. IF YOU GET WORSE, ANY TIME. Prescriptions: Hydrocodone/Acetaminophen [Verdrocet 2.5-325 mg Tablet] 1 each PO Q4HP PRN #14 tablet PRN Reason: Diazepam [Valium 5 Mg Tablet] 5 mg PO Q8HP PRN #10 tablet PRN Reason: FOR MUSCLE RELAXATION
== END 2017-01-27 18:30 | disposition home or self-care (01) ==
LOC: ER 17:06
DX: G44.209 Tension-type headache, unspecified, not intractable (principal)
CPT/HCPCS: 99283

== ENCOUNTER 2017-03-17 15:13 | Emergency (ER) | payer BC, MEDICAID ==
[2017-03-17] MEDS ORDERED: NORMAL SALINE 1000 ML 1,000 ML IV ONE (15:41)
--- NOTE | 2017-03-17 15:48 | ER Document Report ---
ED Medical Screen (RME) - General TRAVEL OUTSIDE OF THE [place] IN LAST 30 DAYS: No <BRENDAN BRADSHAW - Last Filed: 03/17/17 15:42> <MASSIEL NEGRO - Last Filed: 03/17/17 21:08> - General Chief Complaint: High Blood Sugar Stated Complaint: POSSIBLE HIGH BLOOD SUGAR Time Seen by Provider: 03/17/17 15:41 Notes: Patient is a 26 year old female presenting to the emergency department for high blood sugar. Patient states she skipped her insulin this morning and has been drinking lots of stanley aid packets with her water. Patient was seen at [facility] this morning and her blood sugar was 840. Patient states she took 10 units of insulin just prior to arrival. Patient was scheduled to have surgery next week, tubal ligation, however, she had to reschedule since her glucose level was so high. Patient states she has frequency but denies any excess thirst, blurry vision or other symptoms. (BRENDAN BRADSHAW) - Related Data Allergies/Adverse Reactions: No Known Allergies Allergy (Verified 03/13/17 09:27) Past Medical History - Social History Family history: None - Past Medical History Cardiac Medical History: Denies: Hx Coronary Artery Disease, Hx Heart Attack, Hx Hypertension, Hx Heart Murmur Pulmonary Medical History: Denies: Hx Asthma, Hx Bronchitis, Hx COPD, Hx Pneumonia, Hx Tuberculosis Neurological Medical History: Denies: Hx Cerebrovascular Accident, Hx Seizures Endocrine Medical History: Reports: Hx Diabetes Mellitus Type 1, Hx Diabetes Mellitus Type 2. Denies: Hx Graves' Disease, Hx Hyperthyroidism, Hx Hypothyroidism Renal/ Medical History: Denies: Hx Peritoneal Dialysis Musculoskeltal Medical History: Denies Hx Arthritis Past Surgical History: Reports: Hx Section - x2, Hx Tonsillectomy - 2005. Denies: Hx Appendectomy, Hx Bowel Surgery, Hx Cholecystectomy, Hx Coronary Artery Bypass Graft, Hx Gastric Bypass Surgery, Hx Herniorrhaphy, Hx Hysterectomy, Hx Mastectomy, Hx Pacemaker, Hx Tubal Ligation - Immunizations Hx Diphtheria, Pertussis, Tetanus Vaccination: Yes <BRENDAN BRADSHAW - Last Filed: 03/17/17 15:42> Physical Exam <BRENDAN BRADSHAW - Last Filed: 03/17/17 15:42> <MASSIEL NEGRO - Last Filed: 03/17/17 21:08> - Vital signs Vitals: Pulse Resp BP Pulse Ox 94 18 113/84 98 03/17/17 18:24 03/17/17 18:24 03/17/17 18:24 03/17/17 18:24 - Notes Notes: GENERAL: Alert, interacts well. Mild abdomen distress. LUNGS: Clear to auscultation bilaterally, no wheezes, rales, or rhonchi. No respiratory distress. HEART: Mild tachycardia. Regular rhythm. No murmurs, gallops, or rubs. (BRENDAN BRADSHAW) Course - Laboratory Result Diagrams: 03/17/17 15:55 03/17/17 15:55 <MASSIEL NEGRO - Last Filed: 03/17/17 21:08> - Vital Signs Vital signs: Temp Pulse Resp BP Pulse Ox 94 18 113/84 98 03/17/17 18:24 03/17/17 18:24 03/17/17 18:24 03/17/17 18:24 - Laboratory Laboratory results interpreted by me: 03/17/17 03/17/17 03/17/17 15:55 15:55 16:15 MCH 26.2 L RDW 17.4 H Seg Neutrophils % 41.8 L Lymphocytes % 51.0 H Sodium 133.1 L Chloride 94 L Glucose 410 H* POC Glucose Alkaline Phosphatase 170 H Urine Glucose (UA) >=500 H Urine Ketones TRACE H Urine Blood SMALL H 03/17/17 17:56 MCH RDW Seg Neutrophils % Lymphocytes % Sodium Chloride Glucose POC Glucose 191 H Alkaline Phosphatase Urine Glucose (UA) Urine Ketones Urine Blood Doctor's Discharge <BRENDAN BRADSHAW - Last Filed: 03/17/17 15:42> <MASSIEL NEGRO - Last Filed: 03/17/17 21:08> - Discharge Clinical Impression: Hyperglycemia Condition: Stable Disposition: HOME, SELF-CARE Additional Instructions: HYPERGLYCEMIA (HIGH BLOOD SUGAR): You have an abnormally high blood sugar. Not all high blood sugar requires long-term treatment. High blood sugar can be due to medications, , or the stress of illness. (These cases are "borderline diabetes.") If the doctor feels your high blood sugar might resolve with time, you may not require treatment now. It's very important that you follow through, to see if the blood sugar returns to normal levels. Uncontrolled high blood sugar leads to early heart disease, strokes, nerve damage, eye damage, and kidney damage. Call the physician if there is faintness, excess sleepiness, or very rapid breathing. INSULIN: Insulin is a natural hormone that lowers blood sugar. Normal blood sugar prevents complications of diabetes. For most diabetics, insulin is the best way to treat the illness. Be sure you know how to measure the insulin correctly. Insulin is measured in "units." There are three types of insulin: N (NPH or long acting), R (regular or short acting), and L (Lente or very long acting). Be sure you are using the right amount of each type. Insulin must be injected into the fat. You can use the abdomen, upper arms , and thighs. Select a different injection site every time. Wipe the site with alcohol before injecting. When first starting insulin, some adjusting of the insulin dose is necessary. Keep a record of each insulin dose and time of injection, and of the blood sugar and the time you test it. Sometimes insulin can make the blood sugar too low. If you become dizzy, sweaty, shaky, or confused, you may be having a hypoglycemic episode. Immediately use juice or some other sweet food. Call the doctor if the symptoms don't go away. FOLLOW-UP CARE: If you have been referred to a physician for follow-up care, call the physician s office for an appointment as you were instructed or within the next two days. If you experience worsening or a significant change in your symptoms, notify the physician immediately or return to the Emergency Department at any time for re-evaluation. Take your insulin as prescribed. Return if you develop nausea and vomiting, shortness of breath, fever, etc. Referrals: IZZY SOLER MD [Primary Care Provider] - Follow up as needed Scribe Documentation - Scribe Written by Malaika:: Malaika Cook 03/17/17 15:49 acting as scribe for :: Herson <BRENDAN BRADSHAW - Last Filed: 03/17/17 15:42>
[2017-03-17 16:09] LABS: ABSOLUTE LYMPHOCYTES (AUTO) 2.5 10^3/uL (0.5-4.7); ABSOLUTE MONOCYTES (AUTO) 0.3 10^3/uL (0.1-1.4); ABSOLUTE NEUT (AUTO) 2.1 10^3/uL (1.7-8.2); BASOPHILS % (AUTO) 0.8 % (0-2); HEMOGLOBIN 12.4 g/dL (12.0-15.5); HGB HCT DIFFERENCE -0.8; MEAN CORPUSCULAR HEMOGLOBIN 26.2 pg (27.0-33.4); MEAN CORPUSCULAR HGB CONC 32.6 g/dL (32.0-36.0); MEAN CORPUSCULAR VOLUME 80 fl (80-97); MONOCYTES % (AUTO) 5.4 % (3-13); RED BLOOD COUNT 4.73 10^6/uL (3.72-5.28); RED CELL DISTRIBUTION WIDTH 17.4 % (11.5-14.0); SEGMENTED NEUTROPHILS % (AUTO) 41.8 % (42-78); WHITE BLOOD COUNT 4.9 10^3/uL (4.0-10.5)
[2017-03-17 16:26] LABS: ALANINE AMINOTRANSFERASE 26 U/L (9-52); ALBUMIN 3.8 g/dL (3.5-5.0); ALKALINE PHOSPHATASE 170 U/L (38-126); ANION GAP 17 (5-19); ASPARTATE AMINO TRANSFERASE 27 U/L (14-36); BILIRUBIN,DIRECT 0.3 mg/dL (0.0-0.4); BILIRUBIN,TOTAL 0.6 mg/dL (0.2-1.3); BLOOD UREA NITROGEN 12 mg/dL (7-20); CALCIUM 9.3 mg/dL (8.4-10.2); CARBON DIOXIDE 22 mmol/L (22-30); CHLORIDE 94 mmol/L (98-107); SODIUM 133.1 mmol/L (137-145); TOTAL PROTEIN 6.8 g/dL (6.3-8.2)
[2017-03-17 16:27] LABS: CREATININE RESULT 0.58 mg/dL (0.52-1.25)
[2017-03-17] MEDS ORDERED: INSULIN REG, HUMAN 100 UNIT/ML 3 ML VIAL (PYX) SUBCUT ONE (16:27)
[2017-03-17 16:41] LABS: GLUCOSE 410 mg/dL (75-110)
[2017-03-17 16:45] LABS: APPEARANCE,URINE CLEAR; BILIRUBIN,URINE NEGATIVE (NEGATIVE); GLUCOSE, URINE >=500 mg/dL (NEGATIVE); KETONES,URINE TRACE mg/dL (NEGATIVE); LEUKOCYTE ESTERASE,URINE NEGATIVE (NEGATIVE); NITRITE,URINE NEGATIVE (NEGATIVE); PROTEIN,URINE NEGATIVE (NEGATIVE); URINE SPECIFIC GRAVITY 1.027; UROBILINOGEN,URINE NEGATIVE mg/dL (<2.0)
--- NOTE | 2017-03-17 16:48 | ER Document Report ---
ED General - General Chief Complaint: High Blood Sugar Stated Complaint: POSSIBLE HIGH BLOOD SUGAR Time Seen by Provider: 03/17/17 15:41 Notes: Patient is an insulin-dependent diabetic who went to have routine lab work drawn about 10:30 AM this morning in anticipation of having her tubes tied next week. Her blood sugar was reported at 840 and she was advised to come here for care. Patient says that she did not take any of her sliding scale or her NPH insulin before she went to have the blood work drawn. Additionally, patient drank an entire packet of Chuck-Aid drink this morning about 8:30 AM before having the blood work drawn. She did take 10 units of subcutaneous NovoLog insulin about 3 PM this afternoon. Patient's blood sugars normally run between about 100 and 370 at home. She is currently on NPH insulin 12 units in the morning and 22 units in the evening. She is on a sliding scale of NovoLog 10 units in the morning and afternoon and 14 units at night. She has no symptoms of any illness at this time. Does not feel sick on her stomach or abdominal pain. Has not vomited. No urinary tract symptoms. No fevers. No other significant past medical history. TRAVEL OUTSIDE OF THE [place] IN LAST 30 DAYS: No - Related Data Allergies/Adverse Reactions: No Known Allergies Allergy (Verified 03/13/17 09:27) Past Medical History - Social History Smoking Status: Never Smoker Chew tobacco use (# tins/day): No Frequency of alcohol use: None Drug Abuse: None Family History: Reviewed & Not Pertinent Endocrine Medical History: Reports: Hx Diabetes Mellitus Type 1, Hx Diabetes Mellitus Type 2 Past Surgical History: Reports: Hx Section - x2, Hx Tonsillectomy - 2005 - Immunizations Hx Diphtheria, Pertussis, Tetanus Vaccination: Yes Hx Pneumococcal Vaccination: 10/27/11 Review of Systems - Review of Systems Notes: REVIEW OF SYSTEMS: Patient is completely asymptomatic. CONSTITUTIONAL : Denies fever. EENT: Denies eye, ear, nose or mouth or throat pain or other symptoms. CARDIOVASCULAR: Denies chest pain. RESPIRATORY: Denies cough, chest congestion, or shortness of breath. GASTROINTESTINAL: Denies abdominal pain or nausea, vomiting, or diarrhea. GENITOURINARY: Denies difficulty or painful urinating, urinary frequency, blood in urine. MUSCULOSKELETAL: Denies back or neck pain. Denies joint pain or swelling. SKIN: Denies rash or skin lesions. NEUROLOGICAL: Denies LOC or altered mental status. Denies headache. Denies sensory loss or motor deficits. ALL OTHER SYSTEMS REVIEWED AND NEGATIVE. Physical Exam - Vital signs Vitals: Pulse Resp BP Pulse Ox 94 18 113/84 98 03/17/17 18:24 03/17/17 18:24 03/17/17 18:24 03/17/17 18:24 - Notes Notes: PHYSICAL EXAMINATION: GENERAL: Well-appearing, in no acute distress. Vital signs are all normal. HEAD: Atraumatic, normocephalic. ENT: oropharynx clear without exudates. Moist mucous membranes. NECK: Normal range of motion, supple. LUNGS: Breath sounds clear and equal bilaterally. HEART: Regular rate and rhythm without murmurs. ABDOMEN: Soft, nontender. No guarding or rebound. BACK: No tenderness throughout entire back. EXTREMITIES: Normal range of motion without pain. NEUROLOGICAL: Normal speech, normal gait. Normal sensory, motor, and reflex exams. Awake, alert, and oriented x3. Cranial nerves normal. SKIN: Warm, dry, no rashes. Course - Re-evaluation Re-evalutation: 03/17/17 18:01 Patient remains asymptomatic. Bedside Accu-Chek at this time is 191. - Vital Signs Vital signs: Temp Pulse Resp BP Pulse Ox 94 18 113/84 98 03/17/17 18:24 03/17/17 18:24 03/17/17 18:24 03/17/17 18:24 - Laboratory Result Diagrams: 03/17/17 15:55 03/17/17 15:55 Laboratory results interpreted by me: 03/17/17 03/17/17 03/17/17 15:55 15:55 16:15 MCH 26.2 L RDW 17.4 H Seg Neutrophils % 41.8 L Lymphocytes % 51.0 H Sodium 133.1 L Chloride 94 L Glucose 410 H* POC Glucose Alkaline Phosphatase 170 H Urine Glucose (UA) >=500 H Urine Ketones TRACE H Urine Blood SMALL H 03/17/17 17:56 MCH RDW Seg Neutrophils % Lymphocytes % Sodium Chloride Glucose POC Glucose 191 H Alkaline Phosphatase Urine Glucose (UA) Urine Ketones Urine Blood Discharge - Discharge Clinical Impression: Hyperglycemia Condition: Stable Disposition: HOME, SELF-CARE Additional Instructions: HYPERGLYCEMIA (HIGH BLOOD SUGAR): You have an abnormally high blood sugar. Not all high blood sugar requires long-term treatment. High blood sugar can be due to medications, , or the stress of illness. (These cases are "borderline diabetes.") If the doctor feels your high blood sugar might resolve with time, you may not require treatment now. It's very important that you follow through, to see if the blood sugar returns to normal levels. Uncontrolled high blood sugar leads to early heart disease, strokes, nerve damage, eye damage, and kidney damage. Call the physician if there is faintness, excess sleepiness, or very rapid breathing. INSULIN: Insulin is a natural hormone that lowers blood sugar. Normal blood sugar prevents complications of diabetes. For most diabetics, insulin is the best way to treat the illness. Be sure you know how to measure the insulin correctly. Insulin is measured in "units." There are three types of insulin: N (NPH or long acting), R (regular or short acting), and L (Lente or very long acting). Be sure you are using the right amount of each type. Insulin must be injected into the fat. You can use the abdomen, upper arms , and thighs. Select a different injection site every time. Wipe the site with alcohol before injecting. When first starting insulin, some adjusting of the insulin dose is necessary. Keep a record of each insulin dose and time of injection, and of the blood sugar and the time you test it. Sometimes insulin can make the blood sugar too low. If you become dizzy, sweaty, shaky, or confused, you may be having a hypoglycemic episode. Immediately use juice or some other sweet food. Call the doctor if the symptoms don't go away. FOLLOW-UP CARE: If you have been referred to a physician for follow-up care, call the physician s office for an appointment as you were instructed or within the next two days. If you experience worsening or a significant change in your symptoms, notify the physician immediately or return to the Emergency Department at any time for re-evaluation. Take your insulin as prescribed. Return if you develop nausea and vomiting, shortness of breath, fever, etc. Referrals: IZZY SOLER MD [Primary Care Provider] - Follow up as needed
[2017-03-17 18:25] VITALS: BP 113/84
== END 2017-03-17 18:24 | disposition home or self-care (01) ==
LOC: ER 15:13
DX: E11.65 Type 2 diabetes mellitus with hyperglycemia (principal); Z79.4 Long term (current) use of insulin
CPT/HCPCS: 99284; 36415; 82962; 85025; 81025; 80053; 81001; J1815

== ENCOUNTER 2017-04-26 08:23 | Emergency (ER) | payer BC, MEDICAID ==
[2017-04-26] MEDS ORDERED: NORMAL SALINE 1000 ML 1,000 ML IV ONE ×2 (09:03→09:39)
[2017-04-26 09:30] LABS: ABSOLUTE EOSINOPHILS # (AUTO) 0.1 10^3/uL (0.0-0.6); ABSOLUTE LYMPHOCYTES (AUTO) 0.6 10^3/uL (0.5-4.7); ABSOLUTE MONOCYTES (AUTO) 0.3 10^3/uL (0.1-1.4); ABSOLUTE NEUT (AUTO) 4.1 10^3/uL (1.7-8.2); BASOPHILS % (AUTO) 0.2 % (0-2); EOSINOPHILS % (AUTO) 1.7 % (0-6); HEMATOCRIT 39.7 % (36.0-47.0); HGB HCT DIFFERENCE -0.7; LYMPHOCYTES % (AUTO) 11.2 % (13-45); MEAN CORPUSCULAR HEMOGLOBIN 27.4 pg (27.0-33.4); MEAN CORPUSCULAR HGB CONC 32.7 g/dL (32.0-36.0); MEAN CORPUSCULAR VOLUME 84 fl (80-97); MONOCYTES % (AUTO) 5.7 % (3-13); RED BLOOD COUNT 4.74 10^6/uL (3.72-5.28); RED CELL DISTRIBUTION WIDTH 17.5 % (11.5-14.0); SEGMENTED NEUTROPHILS % (AUTO) 81.2 % (42-78)
[2017-04-26 09:31] LABS: VENOUS BLOOD BASE EXCESS 0.8 mmol/L; VENOUS BLOOD HCO3 26.6 mmol/L (20-32); VENOUS BLOOD PCO2 47.1 mmHg (35-63); VENOUS BLOOD PH 7.37 (7.30-7.42)
[2017-04-26] MEDS ORDERED: ONDANSETRON HCL INJ/PF 4 MG/2 ML SDV IV ONE (09:43)
[2017-04-26] MEDS ORDERED: KETOROLAC TROMETHAMINE INJ/PF 30 MG/1 ML SDV IV ONE (09:43)
[2017-04-26 10:18] LABS: ALANINE AMINOTRANSFERASE 29 U/L (9-52); ALBUMIN 3.5 g/dL (3.5-5.0); ALKALINE PHOSPHATASE 120 U/L (38-126); ANION GAP 10 (5-19); ASPARTATE AMINO TRANSFERASE 30 U/L (14-36); BILIRUBIN,DIRECT 0.3 mg/dL (0.0-0.4); BILIRUBIN,TOTAL 0.7 mg/dL (0.2-1.3); BLOOD UREA NITROGEN 14 mg/dL (7-20); CALCIUM 8.8 mg/dL (8.4-10.2); CARBON DIOXIDE 25 mmol/L (22-30); CHLORIDE 102 mmol/L (98-107); CREATININE RESULT 0.54 mg/dL (0.52-1.25); GLUCOSE 230 mg/dL (75-110); LIPASE 93.2 U/L (23-300); POTASSIUM 4.1 mmol/L (3.6-5.0); SODIUM 136.6 mmol/L (137-145); TOTAL PROTEIN 6.5 g/dL (6.3-8.2)
[2017-04-26 10:23] LABS: APPEARANCE,URINE SLIGHTLY-CLOUDY; BILIRUBIN,URINE NEGATIVE (NEGATIVE); GLUCOSE, URINE >=500 mg/dL (NEGATIVE); KETONES,URINE 80 mg/dL (NEGATIVE); LEUKOCYTE ESTERASE,URINE SMALL (NEGATIVE); NITRITE,URINE NEGATIVE (NEGATIVE); PROTEIN,URINE 30 mg/dL (NEGATIVE); URINE SPECIFIC GRAVITY 1.018; UROBILINOGEN,URINE NEGATIVE mg/dL (<2.0)
--- NOTE | 2017-04-26 12:09 | ER Document Report ---
ED General - General Chief Complaint: Abdominal Pain Stated Complaint: ABDOMINAL PAIN Time Seen by Provider: 04/26/17 09:03 TRAVEL OUTSIDE OF THE [place] IN LAST 30 DAYS: No - HPI Patient complains to provider of: Nausea crampy abdominal pain Notes: Patient coming in for nausea and crampy abdominal pain. Patient states that she ate at a local chain restaurant last night having a steak and salad states no other person in her alliance party had any other issues with eating patient states only nausea and crampy abdominal pain. Patient denies any other medical problems except for diabetes. Patient does have a history of DKA in the past. Patient states no vomiting no diarrhea no fevers or chills. - Related Data Allergies/Adverse Reactions: No Known Allergies Allergy (Verified 04/26/17 08:35) Past Medical History - Social History Smoking Status: Never Smoker Chew tobacco use (# tins/day): No Frequency of alcohol use: None Family History: Reviewed & Not Pertinent Patient has suicidal ideation: No Patient has homicidal ideation: No - Past Medical History Cardiac Medical History: Denies: Hx Coronary Artery Disease, Hx Heart Attack, Hx Hypertension, Hx Heart Murmur Pulmonary Medical History: Denies: Hx Asthma, Hx Bronchitis, Hx COPD, Hx Pneumonia, Hx Tuberculosis Neurological Medical History: Denies: Hx Cerebrovascular Accident, Hx Seizures Endocrine Medical History: Reports: Hx Diabetes Mellitus Type 1, Hx Diabetes Mellitus Type 2. Denies: Hx Graves' Disease, Hx Hyperthyroidism, Hx Hypothyroidism Renal/ Medical History: Denies: Hx Peritoneal Dialysis Musculoskeltal Medical History: Denies Hx Arthritis Past Surgical History: Reports: Hx Section - x2, Hx Tonsillectomy - 2005. Denies: Hx Appendectomy, Hx Bowel Surgery, Hx Cholecystectomy, Hx Coronary Artery Bypass Graft, Hx Gastric Bypass Surgery, Hx Herniorrhaphy, Hx Hysterectomy, Hx Mastectomy, Hx Pacemaker, Hx Tubal Ligation - Immunizations Hx Diphtheria, Pertussis, Tetanus Vaccination: Yes Hx Pneumococcal Vaccination: 10/27/11 Review of Systems - Review of Systems Constitutional: No symptoms reported EENT: No symptoms reported Cardiovascular: No symptoms reported Respiratory: No symptoms reported Gastrointestinal: Abdominal pain, Nausea Genitourinary: No symptoms reported Female Genitourinary: No symptoms reported Musculoskeletal: No symptoms reported Skin: No symptoms reported Hematologic/Lymphatic: No symptoms reported Neurological/Psychological: No symptoms reported -: Yes All other systems reviewed and negative Physical Exam - Vital signs Vitals: Temp Pulse Resp BP Pulse Ox 97.9 F 117 H 14 104/74 99 04/26/17 08:27 04/26/17 08:27 04/26/17 08:27 04/26/17 08:27 04/26/17 08:27 Interpretation: Normal - General General appearance: Appears well, Alert - HEENT Head: Normocephalic, Atraumatic Eyes: Normal Pupils: PERRL - Respiratory Respiratory status: No respiratory distress Chest status: Nontender Breath sounds: Normal Chest palpation: Normal - Cardiovascular Rhythm: Regular Heart sounds: Normal auscultation Murmur: No - Abdominal Inspection: Normal Distension: No distension Bowel sounds: Normal Tenderness: Nontender Organomegaly: No organomegaly - Back Back: Normal, Nontender - Extremities General upper extremity: Normal inspection, Nontender, Normal color, Normal ROM , Normal temperature General lower extremity: Normal inspection, Nontender, Normal color, Normal ROM , Normal temperature, Normal weight bearing. No: Татьяна's sign - Neurological Neuro grossly intact: Yes Cognition: Normal Orientation: AAOx4 [place] Coma Scale Eye Opening: Spontaneous [place] Coma Scale Verbal: Oriented [place] Coma Scale Motor: Obeys Commands Gary Coma Scale Total: 15 Speech: Normal Motor strength normal: LUE, RUE, LLE, RLE Sensory: Normal - Psychological Associated symptoms: Normal affect, Normal mood - Skin Skin Temperature: Warm Skin Moisture: Dry Skin Color: Normal Course - Re-evaluation Re-evalutation: 04/26/17 13:03 No signs of DKA 04/26/17 13:07 The patient presents with abdominal pain without signs of peritonitis or other life-threatening or serious etiology. The patient appears stable for discharge and has been instructed to return immediately if the symptoms worsen in any way , or in 8-12hr if not improved for re-evaluation. The patient has been instructed to return if the symptoms worsen or change in any way. - Vital Signs Vital signs: Temp Pulse Resp BP Pulse Ox 97.6 F 117 H 18 109/89 H 100 04/26/17 12:15 04/26/17 08:27 04/26/17 12:15 04/26/17 12:15 04/26/17 12:15 - Laboratory Result Diagrams: 04/26/17 09:11 04/26/17 09:55 Laboratory results interpreted by me: 04/26/17 04/26/17 04/26/17 09:10 09:11 09:55 RDW 17.5 H Seg Neutrophils % 81.2 H Lymphocytes % 11.2 L Sodium 136.6 L Glucose 230 H POC Glucose 222 H Urine Protein Urine Glucose (UA) Urine Ketones Ur Leukocyte Esterase 04/26/17 04/26/17 09:59 11:47 RDW Seg Neutrophils % Lymphocytes % Sodium Glucose POC Glucose 211 H Urine Protein 30 H Urine Glucose (UA) >=500 H Urine Ketones 80 H Ur Leukocyte Esterase SMALL H Discharge - Discharge Clinical Impression: Nausea, Abdominal cramping Condition: Good Disposition: HOME, SELF-CARE Instructions: Abdominal Pain ([facility]) Additional Instructions: Take medication as prescribed. Please drink plenty water to stay hydrated. Return to ER symptoms worsen. Your laboratory studies otherwise look normal. Prescriptions: Ondansetron [Zofran Odt 4 mg Tablet] 4 mg PO Q4HP PRN #30 tab.rapdis PRN Reason: Dicyclomine HCl [Bentyl 20 mg Tablet] 20 mg PO QID #20 tablet Forms: Return to Work Referrals: IZZY SOLER MD [Primary Care Provider] - Follow up as needed
[2017-04-26 12:21] VITALS: BP 109/89
== END 2017-04-26 12:19 | disposition home or self-care (01) ==
LOC: ER 08:23
DX: R11.0 Nausea (principal); R10.9 Unspecified abdominal pain; E11.9 Type 2 diabetes mellitus without complications
CPT/HCPCS: 99284; 96361; 96374; 96375; 36415; 82962; 84702; 83690; 85025; 80053; 81001; 82803; J1885; J2405; J7030

== ENCOUNTER 2019-04-25 09:39 | Emergency (ER) | payer BC, MEDICAID ==
[2019-04-25 09:44] VITALS: BP 99/69
--- NOTE | 2019-04-25 09:58 | ER Document Report ---
HPI - HPI Time Seen by Provider: 04/25/19 09:44 Pain Level: 5 Notes: 28-year-old female who is a type I diabetic presents to the ED for complaints of right ear pain that started approximately 3 days ago. Patient had a piercing to her right upper ear, noticed that it started to get infected, was squeezing where the piercing was, states that this made her ear worse. Eating and drinking without issues. Denies any issues with hearing or impairment of hearing denies fevers, chills, chest pain,palpitations, shortness of breath, dyspnea, nausea, vomiting, diarrhea, abdominal pain, hematuria,blurred vision, double vision, loss of vision, speech changes, LH, dizziness, syncope, headaches, wheezing, ST, URI, neck pain, weakness. - REPRODUCTIVE Reproductive: DENIES: : Past Medical History - General Information source: Patient, Friend - Social History Smoking Status: Unknown if Ever Smoked Family History: Reviewed & Not Pertinent - Past Medical History Cardiac Medical History: Denies: Hx Coronary Artery Disease, Hx Heart Attack, Hx Hypertension, Hx Heart Murmur Pulmonary Medical History: Denies: Hx Asthma, Hx Bronchitis, Hx COPD, Hx Pneumonia, Hx Tuberculosis Neurological Medical History: Denies: Hx Cerebrovascular Accident, Hx Seizures Endocrine Medical History: Reports: Hx Diabetes Mellitus Type 1, Hx Diabetes Mellitus Type 2. Denies: Hx Graves' Disease, Hx Hyperthyroidism, Hx Hypothyroidism Renal/ Medical History: Denies: Hx Peritoneal Dialysis Musculoskeletal Medical History: Denies Hx Arthritis, Denies Hx Systemic Lupus Erythematosus Past Surgical History: Reports: Hx Section - x2, Hx Tonsillectomy - 2005. Denies: Hx Appendectomy, Hx Bowel Surgery, Hx Cholecystectomy, Hx Coronary Artery Bypass Graft, Hx Gastric Bypass Surgery, Hx Herniorrhaphy, Hx Hysterectomy, Hx Mastectomy, Hx Pacemaker, Hx Tubal Ligation - Immunizations Hx Diphtheria, Pertussis, Tetanus Vaccination: Yes Hx Pneumococcal Vaccination: 10/27/11 Vertical Provider Document - CONSTITUTIONAL Agree With Documented VS: Yes Exam Limitations: No Limitations General Appearance: WD/WN Notes: PHYSICAL EXAMINATION: GENERAL: Well-appearing, well-nourished and in no acute distress. HEAD: Atraumatic, normocephalic. EYES: Pupils equal round and reactive to light, extraocular movements intact, conjunctiva are normal. ENT: Nares patent, oropharynx clear without exudates. Moist mucous membranes. Right helix with erythema, swelling with warmth to touch around single piercing. No overt disc deformity bilateral TM intact, no erythema, landmarks visible. External ear canal bilaterally without inflammation, swelling or erythema. Hearing intact bilaterally. NECK: Normal range of motion, supple without lymphadenopathy. LUNGS: Breath sounds clear to auscultation bilaterally and equal. No wheezes rales or rhonchi. HEART: Regular rate and rhythm without murmurs ABDOMEN: Soft, nontender, nondistended abdomen. No guarding, no rebound. No masses appreciated. Female : deferred Musculoskeletal: Normal range of motion, no pitting or edema. No cyanosis. NEUROLOGICAL: Cranial nerves grossly intact. Normal speech, normal gait. Normal sensory, motor exams PSYCH: Normal mood, normal affect. SKIN: Warm, Dry, normal turgor, no rashes or lesions noted. - INFECTION CONTROL TRAVEL OUTSIDE OF THE [place] IN LAST 30 DAYS: No Course - Re-evaluation Re-evalutation: 04/25/19 09:58 Vital stable. Nurse's notes reviewed.Patient presents with symptoms most consistent with an acute cellulitis. Vitals within normal limits. Patient does not meet sepsis criteria is overall very well in appearance. Since patient is a type I diabetic insulin-dependent, will obtain Accu-Chek. Blood sugar is 350, patient states did not take her insulin this morning, will go home and take it. Denies any poly-dysuria, polyuria polyphagia. Patient states she is on a sliding scale, states she will take the appropriate amount of insulin per her sliding scale comments on her fridge and she will take it. Patient's primary care provider is Dr. Soler, advised to follow-up with him if her blood sugars remain out of range. Discussed with patient how important it is to maintain control over her blood sugars with insulin especially when she is fighting a cellulitis. Patient verbalized understanding of this plan of care and agreed with plan of care. Patient will be started on coverage for both staph and strep. At this time will discharge with return precautions and follow-up recommendations. Verbal discharge instructions given a the bedside and opportunity for questions given. Medication warnings reviewed. Patient is in agreement with this plan and has verbalized understanding of return precautions and the need for primary care follow-up in the next 24-72 hours. 04/25/19 10:10 - Vital Signs Vital signs: Temp Pulse Resp BP Pulse Ox 98.0 F 98 16 99/69 L 99 04/25/19 09:43 04/25/19 09:43 04/25/19 09:43 04/25/19 09:43 04/25/19 09:43 Discharge - Discharge Clinical Impression: Cellulitis of ear Qualifiers: Laterality: right Qualified Code(s): H60.11 - Cellulitis of right external ear Diabetes Qualifiers: Diabetes mellitus type: type 1 Diabetes mellitus complication status: without complication Qualified Code(s): E10.9 - Type 1 diabetes mellitus without complications Condition: Stable Disposition: HOME, SELF-CARE Instructions: Cellulitis ([facility]), MRSA Cellulitis ([facility]), Control of Diabetes During Illness ([facility]) Additional Instructions: The rash is likely due to infection of your skin. You need to take the antibiotics as prescribed. Do not stop even if the rash goes away until you have completed all the antibiotics. You need to return to emergency department if the redness spreads outside of this area by more than 2 cm in any direction. You should also return if you develop fevers with temperature greater than 101, persistent vomiting, worsening pain, or have any other symptoms that are concerning to you. Continue to check her blood sugars daily and give herself insulin as needed Return immediately for any new or worsening symptoms. Follow up with primary care provider, call tomorrow to make followup appointment. Prescriptions: Clindamycin HCl 300 mg PO Q6H #28 capsule Forms: Return to Work Referrals: IZZY SOLER MD [Primary Care Provider] - Follow up as needed
== END 2019-04-25 10:16 | disposition home or self-care (01) ==
LOC: ER 09:39
DX: H60.11 Cellulitis of right external ear (principal); E10.9 Type 1 diabetes mellitus without complications; Z79.4 Long term (current) use of insulin
CPT/HCPCS: 82962; 99283

== ENCOUNTER 2019-10-15 19:26 | Emergency (ER) | payer BC ==
[2019-10-15 19:48] VITALS: BP 106/83
[2019-10-15 20:31] LABS: ABSOLUTE EOSINOPHILS # (AUTO) 0.1 10^3/uL (0.0-0.6); ABSOLUTE LYMPHOCYTES (AUTO) 0.7 10^3/uL (0.5-4.7); ABSOLUTE MONOCYTES (AUTO) 0.3 10^3/uL (0.1-1.4); ABSOLUTE NEUT (AUTO) 4.3 10^3/uL (1.7-8.2); BASOPHILS % (AUTO) 0.3 % (0-2); EOSINOPHILS % (AUTO) 2.3 % (0-6); HEMATOCRIT 40.9 % (36.0-47.0); HEMOGLOBIN 13.6 g/dL (12.0-15.5); LYMPHOCYTES % (AUTO) 12.9 % (13-45); MEAN CORPUSCULAR HEMOGLOBIN 28.6 pg (27.0-33.4); MEAN CORPUSCULAR HGB CONC 33.4 g/dL (32.0-36.0); MEAN CORPUSCULAR VOLUME 86 fl (80-97); MONOCYTES % (AUTO) 6.1 % (3-13); PLATELET COUNT 253 10^3/uL (150-450); RED BLOOD COUNT 4.78 10^6/uL (3.72-5.28); RED CELL DISTRIBUTION WIDTH 14.1 % (11.5-14.0); SEGMENTED NEUTROPHILS % (AUTO) 78.4 % (42-78); TOTAL CELLS COUNTED % (AUTO) 100 %; WHITE BLOOD COUNT 5.4 10^3/uL (4.0-10.5)
[2019-10-15 20:41] LABS: VENOUS BLOOD BASE EXCESS 4.5 mmol/L; VENOUS BLOOD HCO3 31.1 mmol/L (20-32); VENOUS BLOOD PCO2 54.5 mmHg (35-63); VENOUS BLOOD PH 7.37 (7.30-7.42)
[2019-10-15 20:53] LABS: ALKALINE PHOSPHATASE 69 U/L (38-126); ANION GAP 7 (5-19); ASPARTATE AMINO TRANSFERASE 27 U/L (14-36); BILIRUBIN,DIRECT 0.2 mg/dL (0.0-0.4); BILIRUBIN,TOTAL 0.6 mg/dL (0.2-1.3); BLOOD UREA NITROGEN 11 mg/dL (7-20); CALCIUM 9.1 mg/dL (8.4-10.2); CARBON DIOXIDE 30 mmol/L (22-30); CHLORIDE 102 mmol/L (98-107); GLUCOSE 96 mg/dL (75-110); TOTAL PROTEIN 7.1 g/dL (6.3-8.2)
[2019-10-15] MEDS ORDERED: ONDANSETRON 4 MG TAB.RAPDIS PO ONE (21:25)
[2019-10-15 21:29] LABS: APPEARANCE,URINE SLIGHTLY-CLOUDY; BILIRUBIN,URINE NEGATIVE (NEGATIVE); COLOR,URINE YELLOW; GLUCOSE, URINE >=500 mg/dL (NEGATIVE); KETONES,URINE NEGATIVE (NEGATIVE); LEUKOCYTE ESTERASE,URINE NEGATIVE (NEGATIVE); NITRITE,URINE NEGATIVE (NEGATIVE); PROTEIN,URINE 30 mg/dL (NEGATIVE); UROBILINOGEN,URINE NEGATIVE mg/dL (<2.0)
--- NOTE | 2019-10-15 21:30 | ER Document Report ---
ED Blood Sugar Problem - General Chief Complaint: High Blood Sugar Stated Complaint: NAUSEA Time Seen by Provider: 10/15/19 21:23 Primary Care Provider: IZZY SOLER MD [Primary Care Provider] - Follow up as needed Notes: Patient is a 29-year-old female with insulin-dependent diabetes who presents emergency department with high blood sugars, nausea, and vomiting. Patient states that she does not have any pain until right before she feels like she needs to vomit. Patient states that she sometimes checks her sugar after she eats. Patient is closely followed by an nuclear powerplant mechanic. Patient states that she finished her last menstrual cycle yesterday. TRAVEL OUTSIDE OF THE [place] IN LAST 30 DAYS: No - Related Data Allergies/Adverse Reactions: No Known Allergies Allergy (Verified 10/15/19 21:10) Home Medications: lantus and novolog Past Medical History - Social History Smoking Status: Never Smoker Chew tobacco use (# tins/day): No Frequency of alcohol use: None Drug Abuse: None Family History: Reviewed & Not Pertinent Patient has suicidal ideation: No Patient has homicidal ideation: No - Past Medical History Cardiac Medical History: Denies: Hx Coronary Artery Disease, Hx Heart Attack, Hx Hypertension, Hx Heart Murmur Pulmonary Medical History: Denies: Hx Asthma, Hx Bronchitis, Hx COPD, Hx Pneumonia, Hx Tuberculosis Neurological Medical History: Denies: Hx Cerebrovascular Accident, Hx Seizures Endocrine Medical History: Reports: Hx Diabetes Mellitus Type 1, Hx Diabetes Mellitus Type 2. Denies: Hx Graves' Disease, Hx Hyperthyroidism, Hx Hypothyroidism Renal/ Medical History: Denies: Hx Peritoneal Dialysis Musculoskeletal Medical History: Denies Hx Arthritis, Denies Hx Systemic Lupus Erythematosus Past Surgical History: Reports: Hx Section - x2, Hx Tonsillectomy - 2005. Denies: Hx Appendectomy, Hx Bowel Surgery, Hx Cholecystectomy, Hx Coronary Artery Bypass Graft, Hx Gastric Bypass Surgery, Hx Herniorrhaphy, Hx Hysterectomy, Hx Mastectomy, Hx Pacemaker, Hx Tubal Ligation - Immunizations Hx Diphtheria, Pertussis, Tetanus Vaccination: Yes Hx Pneumococcal Vaccination: 10/27/11 Review of Systems - Review of Systems Notes: REVIEW OF SYSTEMS: CONSTITUTIONAL : Denies recent illness. Denies recent unintentional weight loss. Denies fever, chills, or sweats. EENT: Denies eye, ear, throat, or mouth pain, discharge, or symptoms. Denies nasal or sinus congestion. CARDIOVASCULAR: Denies chest pain. RESPIRATORY: Denies shortness of breath, cough, congestion, difficulty breathing, or wheezing. GASTROINTESTINAL: See HPI. GENITOURINARY: Denies difficulty urinating, burning, blood in urine, urgency or frequency. MUSCULOSKELETAL: Denies neck and back pain. Denies joint pain or swelling. SKIN: Denies rash, itchiness, or lesions HEMATOLOGIC : Denies easy bruising or bleeding. LYMPHATIC: Denies swollen, painful, enlarged glands. NEUROLOGICAL: Denies no numbness or tingling denies weakness. Denies headache. Denies altered mental status. Denies alteration in speech. PSYCHIATRIC: Denies stress, anxiety, alteration in sleep patterns, or depression. All other systems reviewed and negative. Physical Exam - Vital signs Vitals: Temp Pulse Resp BP Pulse Ox 98.9 F 118 H 20 106/83 99 10/15/19 19:46 10/15/19 19:46 10/15/19 19:46 10/15/19 19:46 10/15/19 19:46 - Notes Notes: PHYSICAL EXAMINATION: GENERAL: Appears well, healthy, well-nourished, no acute distress. HEAD: Normocephalic, atraumatic. EYES: PERRL, conjunctiva normal, all extraocular movements intact, sclera nonicteric ENT: Moist mucous membranes. NECK: Supple, no noticeable swelling, redness, rash. Normal range of motion. LUNGS: Equal breath sounds bilaterally and clear to auscultation. No wheezes rales or rhonchi. CARDIOVASCULAR: S1-S2, regular rate, regular rhythm. Radial pulses 2+, normal. ABDOMEN: Normoactive bowel sounds. Soft, nontender, no guarding, no rebound tenderness, and no masses palpated. EXTREMITIES: Normal strength and range of motion, no pitting or edema. No cyanosis. NEUROLOGICAL: Moves all extremities upon command. Strength 5/5 in all extremities. PSYCH: Normal mood, normal affect. SKIN: Warm, dry. No rash, lesions, ulcerations noted. Normal skin turgor. Course - Re-evaluation Re-evalutation: 10/15/19 22:38 Hematology does not show a leukocytosis, but she does have a left shift. Blood gases unremarkable. Chemistries are also unremarkable. I have a very low suspicion for DKA. Urinalysis shows 3+ bacteria and 6 WBCs. At this time,Unfortunately the patient ended up eloping. I will call her and call in a prescription for her urinary tract infection. 10/16/19 23:15 I was able to get a hold with the patient and I will order her some Zofran and Keflex. - Vital Signs Vital signs: Temp Pulse Resp BP Pulse Ox 98.9 F 118 H 20 106/83 99 10/15/19 19:46 10/15/19 19:46 10/15/19 19:46 10/15/19 19:46 10/15/19 19:46 - Laboratory Result Diagrams: 10/15/19 19:50 10/15/19 19:50 Laboratory results interpreted by me: 10/15/19 10/15/19 10/15/19 19:50 19:50 19:50 RDW 14.1 H Lymph % (Auto) 12.9 L Seg Neutrophils % 78.4 H Creatinine 0.46 L Urine Protein 30 H Urine Glucose (UA) >=500 H Discharge - Discharge Clinical Impression: Urinary tract infection Qualifiers: Urinary tract infection type: acute cystitis Hematuria presence: without hematuria Qualified Code(s): N30.00 - Acute cystitis without hematuria Vomiting Qualifiers: Vomiting type: unspecified Vomiting Intractability: unspecified Nausea presence: with nausea Qualified Code(s): R11.2 - Nausea with vomiting, unspecified Condition: Stable Disposition: ELOPED Instructions: Urinary Tract Infection ([facility]), Cephalexin ([facility]) Prescriptions: Cephalexin [Keflex] 500 mg PO BID #14 capsule Ondansetron [Zofran Odt 4 mg Tablet] 1 - 2 tab PO Q4H PRN #15 tab.rapdis PRN Reason: For Nausea/Vomiting Referrals: IZZY SOLER MD [Primary Care Provider] - Follow up as needed
== END 2019-10-16 03:34 | disposition left against medical advice (07) ==
LOC: ER 19:26
DX: N30.00 Acute cystitis without hematuria (principal); R11.2 Nausea with vomiting, unspecified; E11.9 Type 2 diabetes mellitus without complications; Z79.4 Long term (current) use of insulin
CPT/HCPCS: 36415; 87086; 85025; 81025; 87088; 80053; 81001; 82803; S0119; 87186; 99281